=== PATIENT | female | born 1985 | race Caucasian/White ===

== ENCOUNTER 2017-02-25 20:25 | Inpatient (IN) | payer MEDICARE, OTHER ==
[~2017-02-25] VITALS: Ht 165.1 cm; Wt 44.7 kg
[2017-02-25] MEDS ORDERED: SODIUM CHLORIDE 0.9% 1L BAG IV* STA (22:51)
[2017-02-25] MEDS ORDERED: DICLOFENAC SODIUM 37.5 MG/ML VIAL IV STA (22:51)
[2017-02-25] MEDS ORDERED: ALPR0.25 PO (22:56)
[2017-02-25] MEDS ORDERED: IBUP-1542 PO (22:56)
[2017-02-25] MEDS ORDERED: CEPH-442 PO (22:56)
--- NOTE | 2017-02-26 00:04 | RADRPT ---
PROCEDURE: US right lower extremity venous Doppler CLINICAL INDICATION: Right leg swelling TECHNIQUE: Multiple sonographic images of the right lower extremity deep venous system was obtaine d utilizing grayscale, color-flow, compressive sonography and Doppler imaging with augmentation. COMPARISON: No pertinent prior examinations were submitted for comparison. FINDINGS: There is normal compressibility and flow within the right common femoral, superficial femoral, popli teal, and peroneal veins. IMPRESSION: No sonographic evidence for deep venous thrombosis. RPTAT: HIKT .Jason Varela MD, MD Date Time Electronically viewed and signed by .Jason Varela MD, MD on 02/26/2017 00:04 .T/
--- NOTE | 2017-02-26 00:07 | RADRPT ---
PROCEDURE: US right lower extremity arteries. CLINICAL INDICATION: Pain. TECHNIQUE: Multiple longitudinal and transverse images of the right posterior tibial and dorsalis pedis arteries arteries were obtained with leung scale and color Doppler imaging. COMPARISON: No prior studies are available for comparison. FINDINGS: PTA40.0 cm/sectriphasic DPA32.2 cm/sectriphasic IMPRESSION: 1. Normal blood flow in the right posterior tibial and dorsalis pedis arteries. RPTAT: HTAR .Stuart Harris MD, Date Time Electronically viewed and signed by .Stuart Harris MD, on 02/26/2017 00:06 .R/
--- NOTE | 2017-02-26 00:09 | RADRPT ---
PROCEDURE: Ultrasound soft tissue CLINICAL INDICATION: Right upper thigh swelling TECHNIQUE: An ultrasound of the right upper thigh soft tissues was performed utilizing leung scale and Doppler imaging. COMPARISON: None. FINDINGS: Within the right groin region, there is a 2.0 x 0.7 cm irregular collection and Doppler imaging reve als no significant vascularity in this region. IMPRESSION: 1. Irregular 2.0 x 0.7 cm collection in the right groin region, possibly representing a hematoma or abscess. RPTAT: HTAR .Stuart Harris MD, MD Date Time Electronically viewed and signed by .Stuart Harris MD, MD on 02/26/2017 00:09 .R/
--- NOTE | 2017-02-26 00:09 | RADRPT ---
PROCEDURE: XR Chest. CLINICAL INDICATION: Sepsis. TECHNIQUE: Single frontal chest x-ray. COMPARISON: None. FINDINGS: The cardiomediastinal silhouette is unremarkable. There is no congestive heart failure.. There is r ight upper lobe plate-like atelectasis versus scarring. No focal infiltrate is seen. There is no pl eural effusion. There is no pneumothorax. The osseous structures are unremarkable. IMPRESSION: Minimal right upper lobe plate-like atelectasis or scarring. Otherwise negative. RPTAT: HMVK .Dylan Dietz MD, MD Date Time Electronically viewed and signed by .Dylan iDetz MD, on 02/26/2017 00:09 .K/
[2017-02-26 00:33] LABS: ADD SCAN DIFF NO
[2017-02-26 00:35] LABS: BASOPHIL # 0.1 10^3/ul (0.0-0.1); BASOPHILS % 0.3 % (0.0-2.0); EOSINOPHILS % 0.2 % (0.0-7.0); HEMATOCRIT 51.7 % (37.0-47.0); LYMPHOCYTES # 2.4 10^3/ul (0.8-2.9); LYMPHOCYTES % 14.3 % (15.0-51.0); MEAN CORPUSCULAR HEMOGLOBIN 27.8 pg (29.0-33.0); MEAN CORPUSCULAR HGB CONC 32.9 g/dl (32.0-37.0); MEAN CORPUSCULAR VOLUME 84.5 fl (82.0-101.0); MEAN PLATELET VOLUME 9.4 fl (7.4-10.4); MONOCYTE # 0.8 10^3/ul (0.3-0.9); MONOCYTES % 4.7 % (0.0-11.0); NEUTROPHIL # 13.6 10^3/ul (1.6-7.5); NEUTROPHILS % 80.1 % (39.0-77.0); PLATELET COUNT 357 10^3/UL (140-415); RED BLOOD COUNT 6.12 10^6/ul (4.20-5.40); RED CELL DISTRIBUTION WIDTH 13.3 % (11.5-14.5)
[2017-02-26 00:49] LABS: INR 0.96; PROTIME 12.8 Sec (12.2-14.2)
[2017-02-26 00:50] LABS: PARTIAL THROMBOPLASTIN TIME 25.5 Sec (25.0-35.0)
[2017-02-26] MEDS ORDERED: CLINDAMYCIN 600 MG/D5W (PMX) 50 ML IVPB SCH (01:00)
[2017-02-26 01:35] LABS: ALBUMIN/GLOBULIN RATIO 1.21; BILIRUBIN,INDIRECT 0.4 mg/dl (0-1.1); BILIRUBIN,TOTAL 0.4 mg/dl (0.2-1.3); CALCIUM 9.6 mg/dl (8.4-10.2); CREATININE 0.79 mg/dl (0.44-1.00); POTASSIUM 3.6 mmol/L (3.5-5.1); TOTAL PROTEIN 9.1 g/dl (6.1-8.1)
--- NOTE | 2017-02-26 03:05 | RADRPT ---
PROCEDURE: ULTRASOUND LIMITED ABDOMEN CLINICAL INDICATION: 31-year-old female with abdominal pain and abnormal liver function tests. TECHNIQUE: Multiple sonographic of the right upper quadrant of the abdomen were obtained. The imag es were reviewed on a PACS workstation. COMPARISON: None. FINDINGS: The pancreas is partially visualized and is otherwise without abnormal echogenicity. The liver displays normal echogenicity. The liver measures 13.4 cm in length. No evidence of intrah epatic biliary ductal dilatation is seen. The portal and hepatic veins are unremarkable. The gallbladder demonstrates no wall thickening, sludge, nor stones. No pericholecystic fluid is see n. The common bile duct measures 3.1 mm and is not dilated. The right kidney displays normal echogenicity. The right kidney measures 10.5 cm in maximal length. No caliectasis or hydronephrosis is seen. No free fluid is seen. IMPRESSION: Unremarkable right upper quadrant abdominal ultrasound. .Dung Connor MD, MD Date Time Electronically viewed and signed by .Dung Connor MD, on 02/26/2017 03:05 .Ángel/
[2017-02-26 03:49] LABS: ACETAMINOPHEN < 10.0 ug/ml (10.0-30.0); ETHANOL < 10.0 mg/dl
[2017-02-26] MEDS ORDERED: LIDOCAINE 1%/EPI 30 ML INJ INJ STA (03:49)
[2017-02-26] MEDS ORDERED: KETAMINE 500 MG INJ IV STA (03:49)
[2017-02-26] MEDS ORDERED: LIDOCAINE 2%/EPI MPF (SDV) 20 ML VIAL INJ ONE (04:30)
[2017-02-26] MEDS ORDERED: ONDANSETRON 4 MG INJ IV PRN ×2 (04:30→07:30)
--- NOTE | 2017-02-26 05:50 | ERA ---
ER Documentation Chief Complaint Date/Time DATE: 02/26/17 TIME: 05:28 Chief Complaint Leg pain since this morning took norco and xanax homeless HPI 31-year-old female with a history of heroin abuse presenting with right lower extremity pain. She states she was staying at a friend's house and woke up today and could not walk secondary to right lower extremity pain. She states most of the pain is in her upper thigh and radiates down her leg. She complains of associated right foot numbness and tingling. She also complains of left wrist weakness for the past 3 days. This also was something she noticed when she woke up 3 days ago. She denies any back or neck pain. She recently relapsed with heroin and injected in her left upper extremity 2 days ago. She denies injecting anything into her thigh. She also had sexual intercourse 2 days ago but denies any vaginal discharge or bleeding. Denies shortness of breath, chest pain, fever, chills. She denies any other drug use, alcohol use. She is currently homeless. ROS All systems reviewed and are negative except as per history of present illness. Medications Home Meds Reported Medications Ibuprofen* (Ibuprofen*) 600 Mg Tablet, 600 MG PO Q8 for PAIN LEVEL 1-5, TAB 02/25/17 Alprazolam* (Xanax*) Unknown Strength Tablet, 0 PO Q8H Y for ANXIETY, TAB 02/25/17 Cephalexin* (Keflex*) Unknown Strength Capsule, 0 PO Q6, #28 CAP 02/25/17 Allergies Allergies: Coded Allergies: No Known Allergy (Unverified , 02/25/17) PMhx/Soc History of Surgery: Yes (Breast augmentation,) Anesthesia Reaction: No Hx Neurological Disorder: No Hx Respiratory Disorders: No Hx Cardiac Disorders: No Hx Psychiatric Problems: No Hx Miscellaneous Medical Probl: No Hx Alcohol Use: Yes Hx Substance Use: Yes (Heroin IV) Hx Tobacco Use: Yes Smoking Status: Current every day smoker FmHx Family History: No diabetes Physical Exam Vitals Vital Signs Date Time Temp Pulse Resp B/P Pulse Ox O2 Delivery O2 Flow Rate FiO2 02/26/17 05:00 105 20 123/92 100 Nasal Cannula 2.0 02/26/17 04:45 130 20 122/86 100 Nasal Cannula 2.0 02/26/17 04:35 110 20 120/76 100 Room Air 02/26/17 03:40 100 20 120/86 100 Room Air 02/25/17 21:06 99.1 119 20 104/80 100 Physical Exam Const: Somnolent but arousable, nontoxic, in distress secondary to pain. Very thin and malnourished Head: Atraumatic Eyes: Normal Conjunctiva ENT: Normal External Ears, Nose and Mouth. Neck: Full range of motion.. No meningismus. Resp: Clear to auscultation bilaterally Cardio: Tachycardic with regular rhythm, no murmurs Abd: Soft, non tender, non distended. Normal bowel sounds. Bilateral inguinal lymphadenopathy Skin: No petechiae or rashes Back: No midline or flank tenderness Ext: No cyanosis. 1+ DP and PT pulses. Right lower extremity with swelling and induration to the right medial aspect of the thigh with mild overlying erythema and slight swelling of the entire right lower extremity. There is no palpable fluctuance. Left wrist drop present. 2+ radial pulses bilaterally Neur: Somnolent but arousable, no facial asymmetry. Moving all extremities spontaneously. Refuses to comply with gait testing secondary to pain. There is decreased sensation in the right foot, but sensations intact above the ankle. She is able to flex and extend the right lower extremity at the hip, knee, and the ankle. She is able to wiggle her toes. Left lower extremity has full sensations and motor strength. Psych: Labile, depressed mood Result Diagram: 02/25/17 2355 02/25/17 2355 Results 24 hrs Laboratory Tests Test 02/25/17 23:55 02/26/17 02:30 02/26/17 02:50 White Blood Count 17.010^3/ul Red Blood Count 6.1210^6/ul Hemoglobin 17.0g/dl Hematocrit 51.7% Mean Corpuscular Volume 84.5fl Mean Corpuscular Hemoglobin 27.8pg Mean Corpuscular Hemoglobin Concent 32.9g/dl Red Cell Distribution Width 13.3% Platelet Count 74840^3/UL Mean Platelet Volume 9.4fl Neutrophils % 80.1% Lymphocytes % 14.3% Monocytes % 4.7% Eosinophils % 0.2% Basophils % 0.3% Nucleated Red Blood Cells % 0.0/100WBC Neutrophils # 13.610^3/ul Lymphocytes # 2.410^3/ul Monocytes # 0.810^3/ul Eosinophils # 0.010^3/ul Basophils # 0.110^3/ul Nucleated Red Blood Cells # 0.010^3/ul Prothrombin Time 12.8Sec Prothrombin Time Ratio 1.0 INR International Normalized Ratio 0.96 Activated Partial Thromboplast Time 25.5Sec Sodium Level 136mmol/L Potassium Level 3.6mmol/L Chloride Level 95mmol/L Carbon Dioxide Level 29mmol/L Anion Gap 16 Blood Urea Nitrogen 14mg/dl Creatinine 0.79mg/dl Glucose Level 100mg/dl Lactic Acid Level 1.9mmol/L Calcium Level 9.6mg/dl Total Bilirubin 0.4mg/dl Direct Bilirubin 0.00mg/dl Indirect Bilirubin 0.4mg/dl Aspartate Amino Transf (AST/SGOT) 1414IU/L Alanine Aminotransferase (ALT/SGPT) 384IU/L Alkaline Phosphatase 93IU/L Total Protein 9.1g/dl Albumin 5.0g/dl Globulin 4.10g/dl Albumin/Globulin Ratio 1.21 Serum HCG, Qualitative NEGATIVE Acetaminophen Level < 10.0ug/ml Ethyl Alcohol Level < 10.0mg/dl Current Medications Medications (Trade) Dose Ordered Sig/Michelle Route PRN Reason Start Time Stop Time Status Last Admin Dose Admin Sodium Chloride (NS) 1,400 ml BOLUS OVER 2 HOURS STAT IV* 02/25/17 22:51 02/25/17 22:55 DC 02/26/17 00:13 Diclofenac Sodium 37.5 mg 37.5 mg ONCE STAT IV 02/25/17 22:51 02/25/17 22:55 DC 02/26/17 00:13 Clindamycin HCl/ Dextrose (Cleocin 600 Mg/ D5W (Pmx)) 50 ml @ 50 mls/hr ONCE IVPB 02/26/17 01:00 02/26/17 01:59 DC 02/26/17 03:00 Ketamine HCl (Ketalar) 90 mg ONCE STAT IV 02/26/17 03:49 02/26/17 03:51 DC Lidocaine/ Epinephrine (Xylocaine 1%/ Epi) 30 ml ONCE STAT INJ 02/26/17 03:49 02/26/17 04:19 DC Ondansetron HCl (Zofran Inj) 4 mg BRIDGE ORDER PRN IV NAUSEA AND/OR VOMITING 02/26/17 04:30 02/27/17 04:29 Lidocaine/ Epinephrine (Xylocaine 2%/ Epi Mpf(Sdv)) 20 ml ONCE ONCE INJ 02/26/17 04:30 02/26/17 04:31 DC Procedures/MDM Patient is presenting with right lower extremity pain and paresthesias. Vitals were notable for tachycardia and labs showed leukocytosis and evidence of dehydration. Lactate was within normal limits. 30 cc/kg of IV fluids were started. Clindamycin IV was given for presumed cellulitis and abscess. I have a lower suspicion for epidural abscess, pneumonia, acute pelvic infection, or acute surgical abdomen. US RLE was done to eval for deep abscess, DVT and to eval arterial flow. There was normal arterial flow and no DVT. There was at 2 x 0.7 cm fluid collection noted in the right medial thigh concerning for hematoma versus abscess. I spoke with the patient regarding this and she did not want to be awake during I&D. I advised her of the risks of sedation and she consented after voicing that she understands all the risks associated with procedural sedation. Consent was signed. Needle drainage was done and fluid was sent for culture. Patient's infectious symptoms have not stabilized and the patient is at risk of rapid decompensation. The patient will be admitted for careful hydration, antibiotic therapy, and infectious source control. 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 I have a lower suspicion that she has an intracranial abnormality or cord compression. I will defer any further workup to the inpatient team. Procedural Sedation: Pre-assessment performed. See preceding complete history and physical for details. Time out performed. See sedation documentation for details. Medication(s): Ketamine Complications: No hypoxic or apneic events Recovered without incident. Greater than 15 minutes of face to face time included in sedation and recovery. Abscess aspiration by me: Location: Right medial thigh/groin Anesthesia: Local 2% Lidocaine with epinephrine Technique: Needle aspiration with 18-gauge needle. 8 mL of turbid bloody fluid removed with ultrasound guidance Packing: None Complications: Neurovascularly intact post procedure 48 hour wound check. Scar minimization instructions given. ED Ultrasound: Abscess localized by me using concurrent ultrasound guidance and assessment of the anatomy. Severe Sepsis Assessment: Infectious Source: Right thigh cellulitis and abscess Severe Sepsis Managment: Blood Cultures X 2 before broad spectrum antibiotics initiated within 3 hours of recognition. 30 ml/kg NS bolus Completed Initial Lactate: 1.9 Repeat Lactate not indicated as initial < 2.0 Critical Care: Time: 40 minutes Treatments/Evaluations: Emergent fluid management, while maintaining close respiratory support. Immediate broad spectrum antibiotic therapy. Simultaneous assessment for possible sources in order to direct therapy. Consideration for invasive and chemical support to prevent respiratory or cardiac collapse. Septic Shock Assessment (1 hour post 30 ml/kg fluid bolus): Hypotension (SBP < 90 or 40 mmHg drop, MAP < 65): No Lactic acid > 4.0 No Accepting Care Team: Current data and ongoing care discussed. Time: Time of admission Primary Provider: Avelino Consulting: none Outstanding Data: wound and blood cultures Departure Diagnosis: Primary Impression: Cellulitis of right lower extremity Additional Impressions: Abscess of right thigh Sepsis Qualified Code: A41.9 - Sepsis, due to unspecified organism Left wrist drop Condition: Serious EKMARA AGUILAR MD Feb 26, 2017 05:49
[2017-02-26 06:00] VITALS: PULSE 89; TEMP 98.1
[2017-02-26 06:50] VITALS: BP 105/68; RESP 18
[2017-02-26] MEDS ORDERED: ACETAMINOPHEN 325 MG TAB PO PRN (07:30)
[2017-02-26] MEDS ORDERED: NACL 0.9% 3 ML SYG IV SCH (07:30)
--- NOTE | 2017-02-26 07:47 | HP ---
Date/Time of Note Date/Time of Note DATE: 02/26/17 TIME: 07:43 Assessment/Plan VTE Prophylaxis VTE Prophylaxis Intervention: other (Hold anticoagulation until seen by surgery.) Assessment/Plan Chief Complaint/Hosp Course This is a 31 female being admitted to [facility] for: #1 sepsis: Patient had a white blood cell count of 17 and tachycardia and was the source finger possibly a right abscess. Drainage was attempted in the ED however not much was drained out. Given clindamycin in the ED. Will start vancomycin pharmacy to dose. Will obtain a CAT scan of the right lower extremity for further evaluation. Ultrasound of the right lower extremity did show a 2 x 1 approximately centimeter abscess versus hematoma. Will consult general surgery. #2 right thigh abscess: Ultrasound revealed a 2 x 0.7 cm abscess. It was attempted to be drained in the ED. Will obtain CT scan of the right lower extremity to further evaluate the underlying abscess vs. necoritizing fascitis. Will consult general surgery. #3 IV drug abuse: Patient states that she used heroin recently. Will continue to monitor the patient. Will consult palliative care for further pain management and also consult infectious disease for further antibiotic management. Will await blood cultures and then consider possible echo. #4 left wrist drop: This possibly could have been related to IV drug injection into his left upper extremity. Will continue to monitor this and consider imaging studies as indicated. #5 transaminitis: Patient denies any upper right quadrant pain. Ultrasound of the abdomen does not show any acute abnormality of the liver. However this elevated transaminitis is concerning. Will order hepatitis panel and hepatitis A, B, and C. #6 DVT and GI prophylaxis: Currently will avoid any chemical anticoagulation secondary to possible surgical procedure with surgery, Famotidine Further treatment strategy will be implemented as per the clinical course. Problems: HPI/ROS Admit Date/Time Admit Date/Time Feb 26, 2017 at 04:09 Hx of Present Illness Chief complaint: Right lower extremity pain 31-year-old female with a history of heroin abuse presenting with right lower extremity pain. She states she was staying at a friend's house and woke up today and could not walk secondary to right lower extremity pain. She states most of the pain is in her upper thigh and radiates down her leg. She complains of associated right foot numbness and tingling. She also complains of left wrist weakness for the past 3 days. This also was something she noticed when she woke up 3 days ago. She denies any back or neck pain. She recently relapsed with heroin and injected in her left upper extremity 2 days ago. She denies injecting anything into her thigh. She also had sexual intercourse 2 days ago but denies any vaginal discharge or bleeding. Denies shortness of breath, chest pain, fever, chills. She denies any other drug use, alcohol use. She is currently homeless Allergies: NKDA Medications: See MICHAEL BARROSO Const: As per HPI Eyes : No pain discharge or redness or change in visual acuity ENT: No pain, sore throat, congestion, congestion, dysphagia or discharge Respiratory: No shortness of breath, cough, sputum, wheezing, or pleuritic pain Cardiovascular: No chest pain, palpitation, PND, or edema GI : no change in appetite, abdominal pain, nausea, vomiting, diarrhea, constipation, or change in the color his stool Genitourinary: No dysuria, hematuria, flank pain , discharge or CVA tenderness Musculoskeletal: As per HPI Skin: As per HPI Neuro: No headache, dizziness, syncope, seizure, focal weakness Endocrine: No polyuria, polydipsia, temperature intolerance Psych: No hallucination, depression, anxiety or suicidal ideation PMH/Family/Social Past Medical History Medical History: no pertinent history Past Surgical History Past Surgical Hx: no surgical history Family History Significant Family History: no pertinent family hx Social History Smoking Status: Current every day smoker Drug Use: other (IV heroin drug use) Exam/Review of Systems Vital Signs Vitals Vital Signs Date Time Temp Pulse Resp B/P Pulse Ox O2 Delivery O2 Flow Rate FiO2 02/26/17 06:50 98.7 97 18 105/68 99 02/26/17 06:00 Nasal Cannula 2.0 Exam Exam General: Patient is awake and alert however she does appear to be waxing and waning. She is answering questions appropriately stating she has right upper thigh pain. HEENT: Atraumatic, normocephalic. The pupils are equal, round and reactive. Extraocular motor are intact Neck: Supple with full range of motion. Chest: Nontender Lungs: Clear to auscultation bilaterally no crackles rales or wheezing Heart: Normal S1-S2, Regular rhythm and rate. No overt murmurs appreciated. Abdomen: Soft , nontender, nondistended , bowel sounds are present. No guarding no rebound tenderness , No masses or organomegaly. No costovertebral temporal angle mass Extremities: Left wrist drop, right medial thigh tenderness to palpation, warmth , redness. Neurologic: Left wrist drop, grossly normal mentation, alert and oriented 3. Musculoskeletal: Right upper vertebral muscle tenderness to palpation. Additional Comments ROCEDURE: ULTRASOUND LIMITED ABDOMEN CLINICAL INDICATION: 31-year-old female with abdominal pain and abnormal liver function tests. TECHNIQUE: Multiple sonographic of the right upper quadrant of the abdomen were obtained. The images were reviewed on a PACS workstation. COMPARISON: None. FINDINGS: The pancreas is partially visualized and is otherwise without abnormal echogenicity. The liver displays normal echogenicity. The liver measures 13.4 cm in length. No evidence of intrahepatic biliary ductal dilatation is seen. The portal and hepatic veins are unremarkable. The gallbladder demonstrates no wall thickening, sludge, nor stones. No pericholecystic fluid is seen. The common bile duct measures 3.1 mm and is not dilated. The right kidney displays normal echogenicity. The right kidney measures 10.5 cm in maximal length. No caliectasis or hydronephrosis is seen. No free fluid is seen. IMPRESSION: Unremarkable right upper quadrant abdominal ultrasound. .Dung Connor MD, MD Date Time Electronically viewed and signed by .Dung Connor MD, on 02/26/2017 03:05 .M/ CC: MARA CHAPA MD PROCEDURE: XR Chest. CLINICAL INDICATION: Sepsis. TECHNIQUE: Single frontal chest x-ray. COMPARISON: None. FINDINGS: The cardiomediastinal silhouette is unremarkable. There is no congestive heart failure.. There is right upper lobe plate-like atelectasis versus scarring. No focal infiltrate is seen. There is no pleural effusion. There is no pneumothorax. The osseous structures are unremarkable. IMPRESSION: Minimal right upper lobe plate-like atelectasis or scarring. Otherwise negative. ROCEDURE: US right lower extremity venous Doppler CLINICAL INDICATION: Right leg swelling TECHNIQUE: Multiple sonographic images of the right lower extremity deep venous system was obtained utilizing grayscale, color-flow, compressive sonography and Doppler imaging with augmentation. COMPARISON: No pertinent prior examinations were submitted for comparison. FINDINGS: There is normal compressibility and flow within the right common femoral, superficial femoral, popliteal, and peroneal veins. IMPRESSION: No sonographic evidence for deep venous thrombosis. RPTAT: HIKT .Jason Varela MD, MD Date Time Electronically viewed and signed by .Jason Varela MD, MD on 02/26/2017 00:04 PROCEDURE: Ultrasound soft tissue CLINICAL INDICATION: Right upper thigh swelling TECHNIQUE: An ultrasound of the right upper thigh soft tissues was performed utilizing leung scale and Doppler imaging. COMPARISON: None. FINDINGS: Within the right groin region, there is a 2.0 x 0.7 cm irregular collection and Doppler imaging reveals no significant vascularity in this region. IMPRESSION: 1. Irregular 2.0 x 0.7 cm collection in the right groin region, possibly representing a hematoma or abscess. Labs Result Diagram: 02/25/17 2355 02/25/17 2355 Medications Medications Current Medications Sodium Chloride (NS) 1,000 ml @ 70 mls/hr [id number] IV ; Start 02/26/17 at 07:28; Status UNV Ondansetron HCl (Zofran Inj) 4 mg Q6H PRN IV NAUSEA AND/OR VOMITING; Start 02/26 at 07:30; Status UNV Acetaminophen (Tylenol Tab) 650 mg Q6H PRN PO PAIN LEVEL 1-3 OR FEVER; Start at 07:30; Status UNV Famotidine (Pepcid Iv) 20 mg Q12 IV ; Start 02/26/17 at 09:00; Status UNV Heparin Sodium (Porcine) (Heparin (5000 Units/0.5 ml)) 5,000 unit Q8 SC ; Start 02/26/17 at 14:00; Status UNV MARSHA WETZEL Feb 26, 2017 07:47 MARSHA WETZEL Feb 26, 2017 07:47
[2017-02-26 08:19] VITALS: BP 105/65; RESP 18; Ht 165.1 cm; Wt 44.7 kg
[2017-02-26] MEDS ORDERED: VANCOMYCIN IV PER PHARMACY XX SCH (08:30)
[2017-02-26 08:31] LABS: HAAIG REFLEX REFLEX FILED
[2017-02-26] MEDS ORDERED: VANCOMYCIN 1 GM in NS 250 ML IVPB ONE (09:00)
[2017-02-26] MEDS ORDERED: morphine 10 MG INJ IM PRN (09:30)
[2017-02-26] MEDS: FAMOTIDINE 20 MG INJ IV SCH ×2 (09:31→20:37)
[2017-02-26] MEDS: SOD CHLORIDE 0.9% 1,000 ML IV SCH ×2 (09:32→21:46)
[2017-02-26] MEDS ORDERED: morphine 2 MG INJ IV PRN (10:00)
[2017-02-26 10:35] LABS: HEPATITIS B CORE ANTIBODY NEGATIVE (NEGATIVE)
[2017-02-26] MEDS ORDERED: IOHEXOL 300MG/ML 150 ML BTL ONE ×2 (10:53→16:45)
[2017-02-26] MEDS ORDERED: SOD CHLORIDE 0.9% 0 ML ONE ×2 (10:53→15:41)
--- NOTE | 2017-02-26 11:42 | RADRPT ---
PROCEDURE: CT of the right femur with contrast CLINICAL INDICATION: Hematoma versus abscess TECHNIQUE: CT scan of the right femur was performed after 80 cc of Omnipaque-300 IV contrast was a dministered. Coronal and sagittal reformatted images were obtained from the axial source images. Im ages were reviewed on a high-resolution PACS workstation. The calculated radiation dose measures 64 7.86 mGy centimeters. The CTDI measures 18.41 mGy. One or more of the following dose reduction techniques were used: - Automated exposure control. - Adjustment of the mA and/or kV according to patient size . - Use of iterative reconstruction technique. COMPARISON: Correlation with ultrasound from 02/25/2017. FINDINGS: Soft tissues: There is abnormal infiltration expansion seen throughout the hip adductor musculature continuing dis tally into the long abductor muscles to the posterior thighs seen on the axial series image 84. The re is blurring and edematous myofascial planes in the abductor musculature as well as partially into the distal hamstring muscle seen on the axial series image 76. These findings are suspicious for i nfectious myositis or possibly infectious/early necrotizing fasciitis. No soft tissue gas is noted. No evidence for a large drainable fluid collection. There is fluid noted within the greater troch anteric bursa as well. Osseous structures: There is no cortical destruction to suggest osteomyelitis. The hip joint is maintained. There is a small hip joint effusion. IMPRESSION: 1. Abnormal expansion, intramuscular edema and blurring of the myofascial planes noted along the hip adductors of the pelvis, the adductor rama muscle and inner thigh fat musculature more distally a nd partially at the distal hamstring musculature with a marked amount of edema at the myofascial mary karen. These findings are somewhat nonspecific, but could represent either infectious myositis or inf ectious/early necrotizing fasciitis in the right clinical setting. An inflammatory myositis is a le ss likely possibility. 2. Marked amount of subcutaneous edema is also noted. Small intramuscular collection may be presen t although a larger drainable fluid collection is not well identified. 3. Small nonspecific right hip joint effusion. No evidence for osteomyelitis. 4. Large, likely reactive external iliac lymphadenopathy. 5. No soft tissue gas is seen. Call report: A call report was made to VALORIE Nolasco at 11:30 a.m. on 02/26/2017. RPTAT: EE .Mikie Khan MD, MD Date Time Electronically viewed and signed by .Mikie Khan MD, MD on 02/26/2017 11:42 .d/
[2017-02-26] MEDS: NICOTINE (14 MG/24 HR) PATCH TRANSDERM SCH (12:30)
--- NOTE | 2017-02-26 13:54 | CONS ---
DATE OF ADMISSION: 02/26/2017 DATE OF CONSULTATION: 02/26/2017 TYPE OF CONSULTATION: Infectious disease. REASON FOR CONSULTATION: Antibiotic management. HISTORY OF PRESENT ILLNESS: Samara Barnett is a 31-year-old female who has a history of heroin ab use and is being seen now for antibiotic management. Her past problems include: 1. Heroin abuse. 2. Right lower extremity pain. She states that she was at a friend's house, woke up and could not walk secondary to right lower ext remity pain, which is in the upper thigh and radiates down her leg. She complains of associated rig ht foot numbness and tingling. She also complains of left wrist weakness over the last 3 days. She woke up to this 3 days ago. She denies any back or neck pain. She recently relapsed with heroin a nd injected her left upper extremity 2 days ago, but denies injecting anything in to her thigh. She has had sexual intercourse 2 days ago, but denies any vaginal bleeding or discharge. On admission her white count was 17,000, H and H of 17 and 51.7, platelet count of 357,000. BUN and creatinine a re 14/0.79. She is surface antibody positive for hepatitis B and she is reactive to hepatitis C., s o she is positive for hep C. There is a culture on an abscess that is pending. Soft tissue ultraso und: An irregular 2 x 0.7 collection in the right groin, either hematoma or abscess. Her Doppler is negative. Chest x-ray: Minimal right upper lobe platelike atelectasis or scarring. Lower extremit y CT shows abnormal expansion, intramuscular edema, blurring of the myofascial planes noted along wi th hip abductors of the pelvis, the adductor rama muscle, and inner thigh muscle. More distally a nd partially at the distal hamstring musculature with a marked amount of edema of the myofascial mary karen. They are nonspecific, could represent either infectious myositis or infectious/early necrotizi ng fasciitis in the right clinical setting. Inflammatory myositis is the less likely possibility. A marked amount of subcutaneous edema is noted. No evidence of osteomyelitis. Abdominal ultrasound is negative. PAST MEDICAL HISTORY: Operations as outlined. FAMILY HISTORY: Noncontributory. SOCIAL HISTORY: She has never been a smoker. She uses IV heroin. PHYSICAL EXAMINATION: VITAL SIGNS: Stable. She is afebrile. SKIN: Without generalized rash. HEENT: Within normal limits. NECK: Supple. LYMPH NODES: None palpable. CHEST: Decreased breath sounds at the bases. HEART: Without murmur or gallop. ABDOMEN: Soft, nontender, without organosplenomegaly or masses. EXTREMITIES: She has a left wrist drop, right medial thigh tenderness to palpation, with warmth and redness. RECTAL AND GENITAL EXAM: Deferred. NEUROLOGICAL EVALUATION: Again, left wrist drop. IMPRESSION AND PLAN: The patient has an abscess in the right thigh, a culture of which was taken. We should get a surgeon to evaluate the thigh itself to make sure we not are dealing with a necrotiz ing fasciitis. She should have blood cultures pending, which she does. She has urine cultures pendi ng and wound cultures. I will dictate my findings to the hospitalist. Dictated By: CHELA AVERY MD, JD/VENKATESH Conf#: [id number] DID#: [id number]
[2017-02-26] MEDS: HEPARIN 5,000 UNIT/0.5 ML VIAL SC SCH ×2 (14:00→21:25)
[2017-02-26 14:42] LABS: ADD UMIC YES; URINE BILIRUBIN (Dip) NEGATIVE (NEGATIVE); URINE BLOOD (Dip) 3+ (NEGATIVE); URINE COLOR LT. YELLOW (YELLOW); URINE GLUCOSE (Dip) NEGATIVE (NEGATIVE); URINE KETONES (Dip) NEGATIVE (NEGATIVE); URINE LEUKOCYTE ESTERASE (Dip) NEGATIVE (NEGATIVE); URINE NITRITE (Dip) NEGATIVE (NEGATIVE); URINE TOTAL PROTEIN (Dip) NEGATIVE (NEGATIVE); URINE UROBILINOGEN (Dip) 0.2 E.U./dL (0.1-1.0)
[2017-02-26 15:01] LABS: BARBITURATES Negative (NEGATIVE); BENZODIAZEPINES Positive (NEGATIVE); CANNABINOIDS Negative (NEGATIVE); COCAINE Positive (NEGATIVE); OPIATES Positive (NEGATIVE)
[2017-02-26 15:28] LABS: SQUAMOUS EPITHELIAL CELL,UR FEW
[2017-02-26 15:29] LABS: URINE RBCS 0-2 /HPF (0)
[2017-02-26] MEDS ORDERED: IOHEXOL 300MG/ML 30 ML BTL ONE (15:41)
[2017-02-26] MEDS: PIPER-TAZO 3.375 GM IV (PMX) 100 ML IVPB SCH (17:51)
[2017-02-26] MEDS: ALPRAZOLAM 0.25 MG TAB PO PRN (17:51)
[2017-02-26] MEDS: morphine 2 MG INJ IV PRN ×2 (17:51→21:52)
[2017-02-26] MEDS: VANCOMYCIN 500MG/NS (PMX) 100 ML IVPB SCH (20:37)
--- NOTE | 2017-02-26 20:57 | CONS ---
DATE OF ADMISSION: 02/26/2017 DATE OF CONSULTATION: 02/26/2017 TYPE OF CONSULTATION: Surgical. REFERRING PHYSICIAN: Russel Simmons MD CHIEF COMPLAINT: 1. Right groin/medial thigh pain and swelling. 2. Abscess, right groin. 3. Heroin abuse. 4. Leukocytosis. 5. Sepsis. 6. Transaminitis. HISTORY OF PRESENT ILLNESS: Samara Barnett is a 31-year-old female with drug abuse history, who p resents with a right thigh and groin pain and difficulty in ambulation. The pain radiates down to t he leg. She also has right foot numbness and tingling. She denies any injection at this site. How ever, she has injected in her left upper extremity. She is sexually active but denies any bleeding or vaginal discharge. No chest pain, no shortness of breath. No cough or seizures. No blood per m outh or rectum. No dysuria. No fevers or chills. No headache. In the emergency room, she is found to be tachycardic, but otherwise stable vitals. CBC shows leuko cytosis of 617 and she has transaminitis. Ultrasound of the area identifies 2 x 7 cm collection in the right groin which was drained by ER and patient was admitted for further care and treatment. CT scan of the right lower extremity identifies abnormal expansion, intramuscular edema and blurring o f the myofascial planes along the hip abductors of the pelvis. The adductor rama muscle and inner thigh musculature more distally and partially at the distal hamstring musculature with a marked amou nt of edema in the myofascial planes. These findings are somewhat nonspecific but could represent e ither infectious myositis or infectious early necrotizing fasciitis in the right clinical setting. Inflammatory myositis is a less likely possibility. There is also marked amount of subcutaneous pako ma. Small intramuscular collection may be present, although a large drainable fluid collection is n ot identified. Small nonspecific right hip joint effusion. No evidence for osteomyelitis. Large l ikely reactive external iliac lymphadenopathy. There is no soft tissue gas. PAST MEDICAL HISTORY: 1. IV drug abuse. 2. Right thigh groin abscess and infection. 3. Leukocytosis. 4. Tachycardia. 5. Sepsis. 6. Transaminitis. PAST SURGICAL HISTORY: Denies. MEDICATIONS: As per NOV. ALLERGIES: DENIES. SOCIAL HISTORY: Daily smoker. IV drug abuse. Social alcohol. FAMILY HISTORY: Noncontributory. REVIEW OF SYSTEMS: A 12-point review of systems negative unless addressed in the HPI. PHYSICAL EXAMINATION: VITAL SIGNS: Temperature is 98.7, pulse 80s to 130s, currently 97, blood pressure 105/68. GENERAL: Drowsy. No acute distress. HEENT: Pupils equal, reactive. No scleral icterus. Mucous membranes are moist. NECK: No crepitus. Trachea midline. Supple. PULMONARY: Normal respiratory effort. No wheezing. HEART: S1, S2 present. ABDOMEN: Soft, nontender. EXTREMITIES: Some induration and tenderness right medial thigh. No fluctuance. Otherwise, no minda a. VASCULAR: Capillary refill is 2 seconds. NEUROLOGIC: Arousable, moves all 4 extremities grossly. LYMPHATICS: Inguinal lymphadenopathy on the right side. LABORATORY AND RADIOGRAPHIC: As per chart and HPI. ASSESSMENT AND PLAN: Samara Barnett is a 31-year-old female. 1. Right thigh groin deep space infection of unknown etiology. Continue antibiotics. Continue beverly icious fluid management. Continue close monitoring. The patient needs orthopedic consultation and evaluation, since this is a deep tissue involving possible and fascial planes. 2. Leukocytosis with tachycardia secondary to above with possible sepsis. Continue antibiotics and supportive therapy as above. 3. Transaminitis of unknown etiology. Consult GI. Rule out hepatitis. 4. IV drug abuse history with heroin. The patient is highly encouraged to seek help and stop abuse . 5. Left wrist motor and sensory function, possibly due to recent drug infection. Also, recommend o rthopedic consultations and evaluation. Thank you very much for consulting me in this patient's care. Dictated By: CAROLYN GARG/VENKATESH Conf#: [id number] DID#: [id number]
[2017-02-26 21:36] VITALS: BP 107/68; RESP 18
[2017-02-27] MEDS: ALPRAZOLAM 0.25 MG TAB PO PRN ×4 (00:49→19:36)
[2017-02-27] MEDS: PIPER-TAZO 3.375 GM IV (PMX) 100 ML IVPB SCH ×3 (01:57→17:29)
[2017-02-27] MEDS: morphine 2 MG INJ IV PRN ×3 (02:31→11:27)
[2017-02-27] MEDS: HEPARIN 5,000 UNIT/0.5 ML VIAL SC SCH ×3 (06:04→22:15)
[2017-02-27 08:00] VITALS: BP 113/74; RESP 19
[2017-02-27] MEDS: FAMOTIDINE 20 MG INJ IV SCH ×2 (08:52→22:14)
[2017-02-27] MEDS: NICOTINE (14 MG/24 HR) PATCH TRANSDERM SCH (08:52)
[2017-02-27] MEDS: VANCOMYCIN 500MG/NS (PMX) 100 ML IVPB SCH (08:53)
[2017-02-27 10:03] LABS: ADD SCAN DIFF NO
[2017-02-27 10:11] LABS: BASOPHILS % 0.3 % (0.0-2.0); EOSINOPHILS % 0.3 % (0.0-7.0); HEMATOCRIT 34.9 % (37.0-47.0); HEMOGLOBIN 11.6 g/dl (12.0-16.0); LYMPHOCYTES # 3.4 10^3/ul (0.8-2.9); LYMPHOCYTES % 31.3 % (15.0-51.0); MEAN CORPUSCULAR HGB CONC 33.2 g/dl (32.0-37.0); MEAN CORPUSCULAR VOLUME 84.3 fl (82.0-101.0); MEAN PLATELET VOLUME 9.6 fl (7.4-10.4); MONOCYTE # 0.5 10^3/ul (0.3-0.9); MONOCYTES % 4.3 % (0.0-11.0); NEUTROPHIL # 6.9 10^3/ul (1.6-7.5); NEUTROPHILS % 63.6 % (39.0-77.0); PLATELET COUNT 252 10^3/UL (140-415); RED BLOOD COUNT 4.14 10^6/ul (4.20-5.40); RED CELL DISTRIBUTION WIDTH 13.4 % (11.5-14.5); WHITE BLOOD COUNT 10.8 10^3/ul (4.8-10.8)
[2017-02-27 10:28] LABS: ALBUMIN 3.5 g/dl (3.3-4.9); ALBUMIN/GLOBULIN RATIO 1.4; BILIRUBIN,INDIRECT 0.2 mg/dl (0-1.1); BILIRUBIN,TOTAL 0.2 mg/dl (0.2-1.3); CALCIUM 8.1 mg/dl (8.4-10.2); CREATININE 0.66 mg/dl (0.44-1.00); MAGNESIUM 1.8 mg/dl (1.7-2.5); POTASSIUM 3.8 mmol/L (3.5-5.1)
[2017-02-27] MEDS: SOD CHLORIDE 0.9% 1,000 ML IV SCH (11:27)
[2017-02-27] MEDS ORDERED: morphine 2 MG INJ IV ONE (14:00)
--- NOTE | 2017-02-27 15:28 | PN ---
DATE: 02/27/2017 SUBJECTIVE: No events overnight. The patient is alert, looks comfortable, complaining of right inn er thigh pain, no fevers. WBC today 10.8, no shift, no bands. BUN 5, creatinine 0.66. MICROBIOLOGY: Serology for hepatitis C came back positive, serology for HIV negative. MICROBIOLOGY: Blood cultures, urine culture negative. Wound culture negative. ANTIMICROBIALS: The patient is on: 1. Vancomycin. 2. Zosyn. PHYSICAL EXAMINATION: GENERAL: This is a well-developed anorexic-looking middle-aged woman who is alert, in no distress. HEENT: Head atraumatic, normocephalic. Sclerae anicteric. Buccal mucosa pink. NECK: Supple. CHEST: Rise symmetrical. Breath sounds clear. HEART: S1, S2. ABDOMEN: Soft. Bowel tones present. EXTREMITIES: With right inner thigh erythema. ASSESSMENT: 1. Systemic inflammatory response syndrome. 2. Right thigh cellulitis, possibly folliculitis. 3. History of heroin abuse. 4. Hepatitis C virus. PLAN: The patient remains clinically stable, surgical recommendations noted. She is on appropriate antimicrobials. Awaiting for ortho evaluation. Continue pain management. Dictated By: STEPHANIE FUENTES SNOUT PULLER for CHELA BEAULIEU/VENKATESH Conf#: [id number] DID#: [id number]
--- NOTE | 2017-02-27 15:45 | PN ---
DATE: 02/27/2017 TIME OF EVALUATION: 1400. SUBJECTIVE: The patient is asking for pain medication around the clock. Remains afebrile. OBJECTIVE DATA: VITAL SIGNS: Temperature 97.9, pulse rate 110, respiratory rate 19, blood pressure 113/74, oxygen saturation 100% on room air. GENERAL: This is a 31-year-old female patient, lying in bed, in no apparent distress. HEENT: Head normocephalic and atraumatic. Eyes: Anicteric sclerae. Conjunctivae clear. ENT: Nasal septum is midline. Oral mucosa is moist. NECK: Supple. No JVD noticed. RESPIRATORY: Bilaterally clear to auscultation. No adventitious breath sounds heard. No use of accessory muscles of respiration. CARDIAC: Regular rate and rhythm. S1, S2 heard. ABDOMEN: Soft, nontender and nondistended. Bowel sounds positive in all 4 quadrants. GENITOURINARY: Deferred. EXTREMITIES: Right thigh erythema with tenderness to touch close to the groin, with extension of the erythema to the left gluteal area. Left wrist joint range of motion limited. Left hand grasp weaker than right hand. NEUROLOGIC: The patient is awake, alert and oriented. Cranial nerves are grossly intact. LABORATORY AND DIAGNOSTIC DATA: WBC 10.8, hemoglobin 11.6, hematocrit 34.9, platelet count 252. Sodium 141, potassium 3.8, chloride 102, carbon dioxide 31 , anion gap 12, BUN 5, creatinine 0.66, glucose 158, calcium 8.1, magnesium 1.8 , total bilirubin 0.2, indirect bilirubin 0.2, AST 925, ALT 350, alkaline phosphatase 56. Hepatitis C antibody reactive. HIV 1 and 2 antibodies negative. IMPRESSION AND PLAN: 1. Left thigh/groin area deep space infection of unknown etiology. Continue antibiotics. No drainable fluid as per CT scan. The patient is being followed by infectious disease and general surgery. 2. Transaminitis, most probably secondary to hepatitis C. Hepatitis C antibody positive. Hepatitis C RNA PCR pending. 3. Sepsis secondary to underlying right groin/thigh abscess. Continue antibiotics. No evidence of any septic shock. 4. Polysubstance abuse. The patient is being followed by the pain management team. 5. Left wrist decreased range of motion. The patient will be monitored. 6. Fluids, electrolytes and nutrition. Regular diet. 7. Deep vein thrombosis prophylaxis. Bilateral sequential compression devices. 8. Gastrointestinal prophylaxis. Histamine 2 receptor blockers. PLAN: Continue antibiotics as per infectious disease. As per general surgery recommendation, called the on-call orthopedic surgeon, Dr. Chavez, and talked to Dr. Chavez for further evaluation of the right thigh/right groin. However, Dr. Chavez verbalized since there is no joint involvement or bone involvement, general surgery can handle the case. The case was discussed with Dr. Montoya. KAHLIL MONTOYA MD, AM/VENKATESH Conf#: [id number] DID#: [id number] MTDD
[2017-02-27] MEDS: morphine 4 MG/ML VIAL IV PRN ×2 (18:16→22:16)
[2017-02-27 20:01] VITALS: BP 107/66; RESP 18
[2017-02-27] MEDS: VANCOMYCIN 1 GM in NS 250 ML IVPB SCH (22:27)
--- NOTE | 2017-02-27 23:19 | PN ---
Date/Time of Note Date/Time of Note DATE: 02/27/17 TIME: 23:15 Assessment/Plan Lines/Catheters IV Catheter Type (from [facility]): Peripheral IV Assessment/Plan Chief Complaint/Hosp Course 1. Right thigh groin deep space infection of unknown etiology. Continue antibiotics. Continue judicious fluid management. Continue close monitoring. Recommend orthopedic consultation and evaluation 2. Leukocytosis with tachycardia secondary to above with possible sepsis. Continue antibiotics and supportive therapy as above. Improved 3. Transaminitis of unknown etiology. Consult GI. Rule out hepatitis. 4. IV drug abuse history with heroin. The patient is highly encouraged to seek help and stop abuse. 5. Left wrist motor and sensory function, possibly due to recent drug infection. Also, recommend orthopedic consultations and evaluation. Thank you Problems: Subjective 24 Hr Interval Summary Pain RLE. No f/c. No n/v. No cough. No sz. No rash. No bloating. No dysuria. Bowel function. Leukocytosis resolved. Exam/Review of Systems Vital Signs Vitals Vital Signs Date Time Temp Pulse Resp B/P Pulse Ox O2 Delivery O2 Flow Rate FiO2 02/27/17 20:01 98.2 110 18 107/66 100 02/26/17 08:19 Room Air 02/26/17 06:00 2.0 Intake and Output 02/26/17 02/26/17 02/27/17 15:00 23:00 07:00 Intake Total 200 ml 1620 ml Balance 200 ml 1620 ml Exam Free Text/Dictation GENERAL: Drowsy. No acute distress. HEENT: Pupils equal, reactive. No scleral icterus. Mucous membranes are moist. NECK: No crepitus. Trachea midline. Supple. PULMONARY: Normal respiratory effort. No wheezing. HEART: S1, S2 present. ABDOMEN: Soft, nontender. EXTREMITIES: Some induration and tenderness right medial thigh. No fluctuance. Otherwise, no edema. VASCULAR: Capillary refill is 2 seconds. NEUROLOGIC: Arousable, moves all 4 extremities grossly. LYMPHATICS: Inguinal lymphadenopathy on the right side. Results Result Diagram: 02/27/1730 02/27/1730 CAROLYN HOROWITZ MD Feb 27, 2017 23:19
[2017-02-28] MEDS: SOD CHLORIDE 0.9% 1,000 ML IV SCH ×2 (01:29→16:40)
[2017-02-28] MEDS: PIPER-TAZO 3.375 GM IV (PMX) 100 ML IVPB SCH ×3 (01:29→18:09)
[2017-02-28] MEDS: ALPRAZOLAM 0.25 MG TAB PO PRN ×3 (01:29→14:07)
[2017-02-28] MEDS: morphine 4 MG/ML VIAL IV PRN ×6 (02:06→22:41)
[2017-02-28] MEDS: HEPARIN 5,000 UNIT/0.5 ML VIAL SC SCH ×3 (05:59→21:12)
[2017-02-28 07:30] VITALS: BP 92/58; RESP 18
[2017-02-28] MEDS: FAMOTIDINE 20 MG INJ IV SCH ×2 (08:24→21:13)
[2017-02-28] MEDS: NICOTINE (14 MG/24 HR) PATCH TRANSDERM SCH ×2 (08:24→22:36)
[2017-02-28 09:32] LABS: ADD SCAN DIFF NO
[2017-02-28 09:40] LABS: BASOPHILS % 0.4 % (0.0-2.0); EOSINOPHILS # 0.1 10^3/ul (0.0-0.5); EOSINOPHILS % 0.6 % (0.0-7.0); HEMATOCRIT 36.4 % (37.0-47.0); HEMOGLOBIN 11.9 g/dl (12.0-16.0); LYMPHOCYTES # 3.2 10^3/ul (0.8-2.9); LYMPHOCYTES % 32.4 % (15.0-51.0); MEAN CORPUSCULAR HEMOGLOBIN 27.7 pg (29.0-33.0); MEAN CORPUSCULAR HGB CONC 32.7 g/dl (32.0-37.0); MEAN CORPUSCULAR VOLUME 84.8 fl (82.0-101.0); MEAN PLATELET VOLUME 9.9 fl (7.4-10.4); MONOCYTE # 0.5 10^3/ul (0.3-0.9); MONOCYTES % 4.9 % (0.0-11.0); NEUTROPHILS % 61.5 % (39.0-77.0); PLATELET COUNT 258 10^3/UL (140-415); RED BLOOD COUNT 4.29 10^6/ul (4.20-5.40); RED CELL DISTRIBUTION WIDTH 13.5 % (11.5-14.5); WHITE BLOOD COUNT 9.7 10^3/ul (4.8-10.8)
[2017-02-28 09:54] LABS: ALBUMIN 3.6 g/dl (3.3-4.9); ALBUMIN/GLOBULIN RATIO 1.5; BILIRUBIN,INDIRECT 0.1 mg/dl (0-1.1); BILIRUBIN,TOTAL 0.1 mg/dl (0.2-1.3); CREATININE 0.63 mg/dl (0.44-1.00); POTASSIUM 3.6 mmol/L (3.5-5.1)
[2017-02-28 09:56] LABS: PHOSPHORUS 4.1 mg/dl (2.5-4.9)
[2017-02-28 12:11] LABS: LYMPHOCYTE - CD4/CD8 RATIO 2.35 (0.86-5.00)
--- NOTE | 2017-02-28 13:30 | PN ---
Date/Time of Note Date/Time of Note DATE: 02/28/17 TIME: 13:29 Assessment/Plan Lines/Catheters IV Catheter Type (from [facility]): Peripheral IV Quan in Place (from [facility]): No Assessment/Plan Chief Complaint/Hosp Course 1. Right thigh groin deep space infection of unknown etiology. Continue antibiotics. Continue judicious fluid management. Continue close monitoring. Consider orthopedic consultation and evaluation 2. Leukocytosis with tachycardia secondary to above with possible sepsis. Continue antibiotics and supportive therapy as above. Improved 3. Transaminitis of unknown etiology. Consult GI. Rule out hepatitis. 4. IV drug abuse history with heroin. The patient is highly encouraged to seek help and stop abuse. 5. Left wrist motor and sensory function, possibly due to recent drug infection. Recommend orthopedic/hand consultations and evaluation. Thank you Problems: Subjective 24 Hr Interval Summary Pain RLE. No f/c. No n/v. No cough. No sz. No rash. No bloating. No dysuria. Bowel function. Leukocytosis resolved. Exam/Review of Systems Vital Signs Vitals Vital Signs Date Time Temp Pulse Resp B/P Pulse Ox O2 Delivery O2 Flow Rate FiO2 02/28/17 07:30 97.8 89 18 92/58 100 02/26/17 08:19 Room Air 02/26/17 06:00 2.0 Intake and Output 02/27/17 02/27/17 02/28/17 15:00 23:00 07:00 Intake Total 200 ml 2140 ml 1350 ml Output Total 1300 ml Balance 200 ml 840 ml 1350 ml Exam Free Text/Dictation GENERAL: Drowsy. No acute distress. HEENT: Pupils equal, reactive. No scleral icterus. Mucous membranes are moist. NECK: No crepitus. Trachea midline. Supple. PULMONARY: Normal respiratory effort. No wheezing. HEART: S1, S2 present. ABDOMEN: Soft, nontender. EXTREMITIES: Some induration and tenderness right medial thigh. No fluctuance. Otherwise, no edema. VASCULAR: Capillary refill is 2 seconds. NEUROLOGIC: Arousable, moves all 4 extremities grossly. LYMPHATICS: Inguinal lymphadenopathy on the right side. Results Result Diagram: 02/28/17 0845 02/28/17 0845 CAROLYN HOROWITZ MD Feb 28, 2017 13:30
[2017-02-28] MEDS: VANCOMYCIN 1 GM in NS 250 ML IVPB SCH ×2 (14:07→22:38)
--- NOTE | 2017-02-28 15:16 | CONS ---
Date/Time of Note Date/Time of Note DATE: 02/28/17 TIME: 15:15 Assessment/Plan Assessment/Plan Chief Complaint/Hosp Course SUBJECTIVE: No events overnight. The patient is sleeping, looks comfortable, no fevers. MICROBIOLOGY: Serology for hepatitis C came back positive, serology for HIV negative. MICROBIOLOGY: Blood cultures, urine culture negative. Wound culture negative. ANTIMICROBIALS: 1. Vancomycin. 2. Zosyn. PHYSICAL EXAMINATION: GENERAL: This is a well-developed anorexic-looking middle-aged woman who is alert, in no distress. HEENT: Head atraumatic, normocephalic. Sclerae anicteric. Buccal mucosa pink. NECK: Supple. CHEST: Rise symmetrical. Breath sounds clear. HEART: S1, S2. ABDOMEN: Soft. Bowel tones present. EXTREMITIES: With right inner thigh erythema. ASSESSMENT: 1. Systemic inflammatory response syndrome. 2. Right thigh cellulitis, possibly folliculitis. 3. History of heroin abuse. 4. Hepatitis C virus. PLAN: The patient remains stable, surgical recommendations noted. She is on appropriate antimicrobials. Continue pain management. dw staff Problems: Consultation Date/Type/Reason Admit Date/Time Feb 27, 2017 at 12:41 Initial Consult Date Type of Consultation: ID Exam/Review of Systems Vital Signs Vitals Vital Signs Date Time Temp Pulse Resp B/P Pulse Ox O2 Delivery O2 Flow Rate FiO2 02/28/17 07:30 97.8 89 18 92/58 100 02/26/17 08:19 Room Air 02/26/17 06:00 2.0 Intake and Output 02/27/17 02/27/17 02/28/17 15:00 23:00 07:00 Intake Total 200 ml 2140 ml 1350 ml Output Total 1300 ml Balance 200 ml 840 ml 1350 ml Results Result Diagram: 02/28/17 0845 02/28/17 0845 Results 24 hrs Laboratory Tests Test 02/27/17 20:21 02/28/17 08:45 Vancomycin Level Trough < 5.0 L White Blood Count 9.7 Red Blood Count 4.29 Hemoglobin 11.9 L Hematocrit 36.4 L Mean Corpuscular Volume 84.8 Mean Corpuscular Hemoglobin 27.7 L Mean Corpuscular Hemoglobin Concent 32.7 Red Cell Distribution Width 13.5 Platelet Count 258 Mean Platelet Volume 9.9 Neutrophils % 61.5 Lymphocytes % 32.4 Monocytes % 4.9 Eosinophils % 0.6 Basophils % 0.4 Nucleated Red Blood Cells % 0.0 Neutrophils # 6.0 Lymphocytes # 3.2 H Monocytes # 0.5 Eosinophils # 0.1 Basophils # 0.0 Nucleated Red Blood Cells # 0.0 Sodium Level 142 Potassium Level 3.6 Chloride Level 105 Carbon Dioxide Level 31 Anion Gap 10 Blood Urea Nitrogen 8 Creatinine 0.63 Glucose Level 91 # Calcium Level 8.0 L Phosphorus Level 4.1 Magnesium Level 2.0 Total Bilirubin 0.1 L Direct Bilirubin 0.00 Indirect Bilirubin 0.1 Aspartate Amino Transf (AST/SGOT) 600 H Alanine Aminotransferase (ALT/SGPT) 259 H Alkaline Phosphatase 54 Total Protein 6.0 L Albumin 3.6 Globulin 2.40 Albumin/Globulin Ratio 1.50 Vitamin D 1,25-Dihydroxy < 12.8 L Thyroid Stimulating Hormone (TSH) 1.030 Free Thyroxine 0.70 L Medications Medications Current Medications Sodium Chloride (NS) 1,000 ml @ 70 mls/hr [id number] IV Last administered on 01:29; Admin Dose 70 MLS/HR; Start 02/26/17 at 07:28 Ondansetron HCl (Zofran Inj) 4 mg Q6H PRN IV NAUSEA AND/OR VOMITING; Start 02/26 at 07:30 Acetaminophen (Tylenol Tab) 650 mg Q6H PRN PO PAIN LEVEL 1-3 OR FEVER; Start at 07:30 Famotidine (Pepcid Iv) 20 mg Q12 IV Last administered on 02/28/17 08:24; Admin Dose 20 MG; Start 02/26/17 at 09:00 Heparin Sodium (Porcine) (Heparin (5000 Units/0.5 ml)) 5,000 unit Q8 SC Last administered on 02/28/17 05:59; Admin Dose 5,000 UNIT; Start 02/26/17 at 14:00 Nicotine 1 patch 1 patch DAILY TRANSDERM Last administered on 02/28/17 08:24; Admin Dose 1 PATCH; Start 02/26/17 at 12:30 Piperacillin Sod/ Tazobactam Sod (Zosyn 3.375gm/ 100 ml (Pmx)) 100 ml @ 25 mls/ hr TID@02,10,18 IVPB Last administered on 02/28/17 10:09; Admin Dose 25 MLS/HR ; Start 02/26/17 at 18:00 Morphine Sulfate 3 mg 3 mg Q4H PRN IV PAIN LEVEL 4-6 Last administered on 15:03; Admin Dose 3 MG; Start 02/27/17 at 17:30 Vancomycin HCl (Vancocin) 250 ml @ 125 mls/hr Q12H IVPB Last administered on 14:07; Admin Dose 125 MLS/HR; Start 02/27/17 at 23:00 Miscellaneous Information (*Rx Drug Level Order Reminder*) VANCOMYCIN TROUGH LEVEL... ONCE ONCE XX ; Start 03/01/17 at 10:00; Stop 03/01/17 at 10:01 Alprazolam (Xanax) 0.5 mg Q6H PRN PO ANXIETY; Start 02/28/17 at 14:30 STEPHANIE FUENTES NP Feb 28, 2017 15:16
[2017-02-28] MEDS ORDERED: HYDROCODONE/APAP (5/325) TAB PO PRN (16:00)
--- NOTE | 2017-02-28 16:57 | PN ---
Date/Time of Note Date/Time of Note DATE: 02/28/17 TIME: 16:56 Assessment/Plan VTE Prophylaxis VTE Prophylaxis Intervention: SCD's Lines/Catheters IV C[facility]ter Type (from [facility]): Peripheral IV Urinary Cath still in place: No Assessment/Plan Chief Complaint/Hosp Course 1. Left thigh/groin area deep space infection of unknown etiology. Continue antibiotics. No drainable fluid as per CT scan. The patient is being followed by infectious disease and general surgery. 2. Transaminitis, most probably secondary to hepatitis C. Hepatitis C antibody positive. Hepatitis C RNA PCR pending. 3. Sepsis secondary to underlying right groin/thigh abscess. Continue antibiotics. No evidence of any septic shock. 4. Substance abuse. The patient is being followed by the pain management team. 5. Left wrist decreased range of motion. The patient will be monitored. Will obtain a CT scan of the cervical and thoracic spine to evaluate for any underlying pathology. 6. Vitamin D deficiency. Will start the patient on vitamin D supplements 7. Fluids, electrolytes and nutrition. Regular diet. 8. Deep vein thrombosis prophylaxis. Bilateral sequential compression devices. 9. Gastrointestinal prophylaxis. Histamine 2 receptor blockers. PLAN: Continue antibiotics as per infectious disease. As per general surgery recommendation, called the on-call orthopedic surgeon, Dr. Chavez on 02/27/2017, and talked to Dr. Chavez for further evaluation of the right thigh/right groin. However, Dr. Chavez verbalized since there is no joint involvement or bone involvement, general surgery can handle the case. The case was discussed with Dr. Montoya. Problems: Subjective 24 Hr Interval Summary Free Text/Dictation The patient asking for pain medications and anxiety medications around-the- clock. Exam/Review of Systems Vital Signs Vitals Vital Signs Date Time Temp Pulse Resp B/P Pulse Ox O2 Delivery O2 Flow Rate FiO2 02/28/17 07:30 97.8 89 18 92/58 100 02/26/17 08:19 Room Air 02/26/17 06:00 2.0 Intake and Output 02/27/17 02/27/17 02/28/17 15:00 23:00 07:00 Intake Total 200 ml 2140 ml 1350 ml Output Total 1300 ml Balance 200 ml 840 ml 1350 ml Exam GENERAL: This is a 31-year-old female patient, lying in bed, in no apparent distress. HEENT: Head normocephalic and atraumatic. Eyes: Anicteric sclerae. Conjunctivae clear. ENT: Nasal septum is midline. Oral mucosa is moist. NECK: Supple. No JVD noticed. RESPIRATORY: Bilaterally clear to auscultation. No adventitious breath sounds heard. No use of accessory muscles of respiration. CARDIAC: Regular rate and rhythm. S1, S2 heard. ABDOMEN: Soft, nontender and nondistended. Bowel sounds positive in all 4 quadrants. GENITOURINARY: Deferred. EXTREMITIES: Right thigh erythema with tenderness to touch close to the groin, with extension of the erythema to the left gluteal area. Left wrist joint range of motion limited. Left hand grasp weaker than right hand. NEUROLOGIC: The patient is awake, alert and oriented. Cranial nerves are grossly intact. Results Result Diagram: 02/28/17 0845 02/28/17 0845 Results 24 hrs Laboratory Tests Test 02/27/17 20:21 02/28/17 08:45 Vancomycin Level Trough < 5.0 L White Blood Count 9.7 Red Blood Count 4.29 Hemoglobin 11.9 L Hematocrit 36.4 L Mean Corpuscular Volume 84.8 Mean Corpuscular Hemoglobin 27.7 L Mean Corpuscular Hemoglobin Concent 32.7 Red Cell Distribution Width 13.5 Platelet Count 258 Mean Platelet Volume 9.9 Neutrophils % 61.5 Lymphocytes % 32.4 Monocytes % 4.9 Eosinophils % 0.6 Basophils % 0.4 Nucleated Red Blood Cells % 0.0 Neutrophils # 6.0 Lymphocytes # 3.2 H Monocytes # 0.5 Eosinophils # 0.1 Basophils # 0.0 Nucleated Red Blood Cells # 0.0 Sodium Level 142 Potassium Level 3.6 Chloride Level 105 Carbon Dioxide Level 31 Anion Gap 10 Blood Urea Nitrogen 8 Creatinine 0.63 Glucose Level 91 # Calcium Level 8.0 L Phosphorus Level 4.1 Magnesium Level 2.0 Total Bilirubin 0.1 L Direct Bilirubin 0.00 Indirect Bilirubin 0.1 Aspartate Amino Transf (AST/SGOT) 600 H Alanine Aminotransferase (ALT/SGPT) 259 H Alkaline Phosphatase 54 Total Protein 6.0 L Albumin 3.6 Globulin 2.40 Albumin/Globulin Ratio 1.50 Vitamin D 1,25-Dihydroxy < 12.8 L Thyroid Stimulating Hormone (TSH) 1.030 Free Thyroxine 0.70 L Medications Medications Current Medications Sodium Chloride (NS) 1,000 ml @ 70 mls/hr [id number] IV Last administered on 01:29; Admin Dose 70 MLS/HR; Start 02/26/17 at 07:28 Ondansetron HCl (Zofran Inj) 4 mg Q6H PRN IV NAUSEA AND/OR VOMITING; Start 02/26 at 07:30 Acetaminophen (Tylenol Tab) 650 mg Q6H PRN PO PAIN LEVEL 1-3 OR FEVER; Start at 07:30 Famotidine (Pepcid Iv) 20 mg Q12 IV Last administered on 02/28/17 08:24; Admin Dose 20 MG; Start 02/26/17 at 09:00 Heparin Sodium (Porcine) (Heparin (5000 Units/0.5 ml)) 5,000 unit Q8 SC Last administered on 02/28/17 05:59; Admin Dose 5,000 UNIT; Start 02/26/17 at 14:00 Nicotine 1 patch 1 patch DAILY TRANSDERM Last administered on 02/28/17 08:24; Admin Dose 1 PATCH; Start 02/26/17 at 12:30 Piperacillin Sod/ Tazobactam Sod (Zosyn 3.375gm/ 100 ml (Pmx)) 100 ml @ 25 mls/ hr TID@02,10,18 IVPB Last administered on 02/28/17 10:09; Admin Dose 25 MLS/HR ; Start 02/26/17 at 18:00 Morphine Sulfate 3 mg 3 mg Q4H PRN IV PAIN LEVEL 4-6 Last administered on 15:03; Admin Dose 3 MG; Start 02/27/17 at 17:30 Vancomycin HCl (Vancocin) 250 ml @ 125 mls/hr Q12H IVPB Last administered on 14:07; Admin Dose 125 MLS/HR; Start 02/27/17 at 23:00 Miscellaneous Information (*Rx Drug Level Order Reminder*) VANCOMYCIN TROUGH LEVEL... ONCE ONCE XX ; Start 03/01/17 at 10:00; Stop 03/01/17 at 10:01 Alprazolam (Xanax) 0.5 mg Q6H PRN PO ANXIETY; Start 02/28/17 at 14:30 KAHLIL FELTON NP Feb 28, 2017 16:57
[2017-02-28 20:33] VITALS: BP 106/59; RESP 20
[2017-02-28] MEDS: ALPRAZOLAM 0.5 MG TAB PO PRN (21:11)
[2017-03-01] MEDS: PIPER-TAZO 3.375 GM IV (PMX) 100 ML IVPB SCH ×3 (01:03→18:08)
[2017-03-01] MEDS: morphine 4 MG/ML VIAL IV PRN ×5 (03:37→23:29)
[2017-03-01] MEDS: HEPARIN 5,000 UNIT/0.5 ML VIAL SC SCH (05:16)
[2017-03-01 05:52] LABS: ADD SCAN DIFF NO
[2017-03-01 06:09] LABS: BASOPHIL # 0.1 10^3/ul (0.0-0.1); BASOPHILS % 0.7 % (0.0-2.0); EOSINOPHILS % 0.4 % (0.0-7.0); HEMATOCRIT 31.3 % (37.0-47.0); HEMOGLOBIN 10.2 g/dl (12.0-16.0); LYMPHOCYTES # 3.3 10^3/ul (0.8-2.9); LYMPHOCYTES % 41.3 % (15.0-51.0); MEAN CORPUSCULAR HEMOGLOBIN 27.9 pg (29.0-33.0); MEAN CORPUSCULAR HGB CONC 32.6 g/dl (32.0-37.0); MEAN CORPUSCULAR VOLUME 85.8 fl (82.0-101.0); MEAN PLATELET VOLUME 9.5 fl (7.4-10.4); MONOCYTE # 0.4 10^3/ul (0.3-0.9); MONOCYTES % 4.7 % (0.0-11.0); NEUTROPHIL # 4.2 10^3/ul (1.6-7.5); NEUTROPHILS % 52.5 % (39.0-77.0); PLATELET COUNT 242 10^3/UL (140-415); RED BLOOD COUNT 3.65 10^6/ul (4.20-5.40); RED CELL DISTRIBUTION WIDTH 13.7 % (11.5-14.5); WHITE BLOOD COUNT 8.1 10^3/ul (4.8-10.8)
[2017-03-01 06:39] LABS: MAGNESIUM 1.9 mg/dl (1.7-2.5); PHOSPHORUS 4.2 mg/dl (2.5-4.9)
[2017-03-01 06:40] LABS: ALBUMIN 3.4 g/dl (3.3-4.9); ALBUMIN/GLOBULIN RATIO 1.61; BILIRUBIN,INDIRECT 0.3 mg/dl (0-1.1); BILIRUBIN,TOTAL 0.3 mg/dl (0.2-1.3); CREATININE 0.66 mg/dl (0.44-1.00); POTASSIUM 3.4 mmol/L (3.5-5.1); TOTAL PROTEIN 5.5 g/dl (6.1-8.1)
[2017-03-01] MEDS: SOD CHLORIDE 0.9% 1,000 ML IV SCH ×3 (06:58→23:49)
[2017-03-01 07:47] VITALS: BP 94/55; RESP 18
[2017-03-01] MEDS: FAMOTIDINE 20 MG INJ IV SCH (08:23)
[2017-03-01] MEDS: CHOLECALCIFEROL 2,000 UNIT CAP PO SCH (08:23)
[2017-03-01] MEDS: ALPRAZOLAM 0.5 MG TAB PO PRN ×2 (11:37→20:20)
[2017-03-01] MEDS: VANCOMYCIN 1 GM in NS 250 ML IVPB SCH (11:45)
--- NOTE | 2017-03-01 13:42 | PN ---
Date/Time of Note Date/Time of Note DATE: 03/01/17 TIME: 13:38 Assessment/Plan VTE Prophylaxis VTE Prophylaxis Intervention: LMWH Lines/Catheters IV Catheter Type (from Nrs): Peripheral IV Urinary Cath still in place: No Assessment/Plan Chief Complaint/Hosp Course Subjective: Events noted Objective: Vss systolic 90-100 on narcotics Physical examination No pallor icterus adenopathy Regular Clear Bowel sounds positive, nontender, nondistended, no RIG No edema Assessment and plan 1. Rt thigh cellulitis vs hematoma vs myositis. Appreciate ID and surgical assistance. MRI/ rheumatology? 2. Chronic IVDA; denies injecting right thigh 3. Substance abuse: Heroin, cocaine, meth? Benzo diazepam? 4. Chronic pain? 5. Chronic anxiety depression 6. Left wrist drop. CT/Ortho pending. Nerve conduction studies? 7. Anemia 8. Tobacco abuse 9. Vitamin D deficiency 10. Acute liver injury, improved. If worse we will have to discontinue benzodiazepines. 11. Hepatitis C viremia, no evidence of cirrhosis on ultrasound. Outpatient GI , hepatitis A B vaccination. Problems: Exam/Review of Systems Vital Signs Vitals Vital Signs Date Time Temp Pulse Resp B/P Pulse Ox O2 Delivery O2 Flow Rate FiO2 03/01/17 07:47 98.0 91 18 94/55 98 02/26/17 08:19 Room Air 02/26/17 06:00 2.0 Intake and Output 02/28/17 02/28/17 03/01/17 15:00 23:00 07:00 Intake Total 100 ml 350 ml 1340 ml Balance 100 ml 350 ml 1340 ml Results Result Diagram: 03/01/17 0532 03/01/17 0532 Results 24 hrs Laboratory Tests Test 03/01/17 05:32 03/01/17 10:20 White Blood Count 8.1 Red Blood Count 3.65 L Hemoglobin 10.2 L Hematocrit 31.3 L Mean Corpuscular Volume 85.8 Mean Corpuscular Hemoglobin 27.9 L Mean Corpuscular Hemoglobin Concent 32.6 Red Cell Distribution Width 13.7 Platelet Count 242 Mean Platelet Volume 9.5 Neutrophils % 52.5 Lymphocytes % 41.3 Monocytes % 4.7 Eosinophils % 0.4 Basophils % 0.7 Nucleated Red Blood Cells % 0.0 Neutrophils # 4.2 Lymphocytes # 3.3 H Monocytes # 0.4 Eosinophils # 0.0 Basophils # 0.1 Nucleated Red Blood Cells # 0.0 Sodium Level 142 Potassium Level 3.4 L Chloride Level 107 Carbon Dioxide Level 31 Anion Gap 7 L Blood Urea Nitrogen 8 Creatinine 0.66 Glucose Level 149 # Calcium Level 8.0 L Phosphorus Level 4.2 Magnesium Level 1.9 Total Bilirubin 0.3 Direct Bilirubin 0.00 Indirect Bilirubin 0.3 Aspartate Amino Transf (AST/SGOT) 331 H Alanine Aminotransferase (ALT/SGPT) 215 H Alkaline Phosphatase 44 Total Protein 5.5 L Albumin 3.4 Globulin 2.10 Albumin/Globulin Ratio 1.61 Vancomycin Level Trough 7.4 L Medications Medications Current Medications Sodium Chloride (NS) 1,000 ml @ 70 mls/hr [id number] IV Last administered on 01:29; Admin Dose 70 MLS/HR; Start 02/26/17 at 07:28 Ondansetron HCl (Zofran Inj) 4 mg Q6H PRN IV NAUSEA AND/OR VOMITING; Start 02/26 at 07:30 Acetaminophen (Tylenol Tab) 650 mg Q6H PRN PO PAIN LEVEL 1-3 OR FEVER; Start at 07:30 Famotidine (Pepcid Iv) 20 mg Q12 IV Last administered on 03/01/17 08:23; Admin Dose 20 MG; Start 02/26/17 at 09:00 Heparin Sodium (Porcine) (Heparin (5000 Units/0.5 ml)) 5,000 unit Q8 SC Last administered on 03/01/17 05:16; Admin Dose 5,000 UNIT; Start 02/26/17 at 14:00 Nicotine 1 patch 1 patch DAILY TRANSDERM Last administered on 02/28/17 22:36; Admin Dose 1 PATCH; Start 02/26/17 at 12:30 Piperacillin Sod/ Tazobactam Sod (Zosyn 3.375gm/ 100 ml (Pmx)) 100 ml @ 25 mls/ hr TID@02,10,18 IVPB Last administered on 03/01/17 09:35; Admin Dose 25 MLS/HR ; Start 02/26/17 at 18:00 Morphine Sulfate (morphine) 3 mg Q4H PRN IV PAIN LEVEL 4-6 Last administered on 03/01/17 08:34; Admin Dose 3 MG; Start 02/27/17 at 17:30 Alprazolam (Xanax) 0.5 mg Q6H PRN PO ANXIETY Last administered on 03/01/17 11: 37; Admin Dose 0.5 MG; Start 02/28/17 at 14:30 Cholecalciferol 2000 unit 2,000 unit DAILY PO Last administered on 03/01/17 08: 23; Admin Dose 2,000 UNIT; Start 03/01/17 at 09:00 Vancomycin HCl/ Sodium Chloride (Vancocin/NS) 250 ml @ 83.333 mls/ hr Q12H IVPB ; Start 03/01/17 at 23:00 DOMINGA GUAJARDO MD Mar 01, 2017 13:42
[2017-03-01] MEDS: LACTOBACILLUS RHAMNOSUS CAP PO SCH ×2 (13:52→20:20)
[2017-03-01] MEDS: POTASSIUM CHLORIDE 20 MEQ POWDER FOR ORAL SOLN PO SCH (13:53)
--- NOTE | 2017-03-01 14:18 | CONS ---
Date/Time of Note Date/Time of Note DATE: 03/01/17 TIME: 14:17 Assessment/Plan Assessment/Plan Chief Complaint/Hosp Course SUBJECTIVE: No events overnight. The patient is awake, looks comfortable, no fevers. MICROBIOLOGY: Serology for hepatitis C came back positive, serology for HIV negative. MICROBIOLOGY: Blood cultures, urine culture negative. Wound culture negative. ANTIMICROBIALS: 1. Vancomycin. 2. Zosyn. PHYSICAL EXAMINATION: GENERAL: This is a well-developed anorexic-looking middle-aged woman who is alert, in no distress. HEENT: Head atraumatic, normocephalic. Sclerae anicteric. Buccal mucosa pink. NECK: Supple. CHEST: Rise symmetrical. Breath sounds clear. HEART: S1, S2. ABDOMEN: Soft. Bowel tones present. EXTREMITIES: With right inner thigh erythema. ASSESSMENT: 1. Systemic inflammatory response syndrome. 2. Right thigh cellulitis . 3. History of heroin abuse. 4. Hepatitis C virus. PLAN: The patient remains stable, RLE still with swelling. She is on appropriate antimicrobials. Surgery follows. Continue pain management/PT, pending ortho eval. dw staff Problems: Consultation Date/Type/Reason Admit Date/Time Feb 27, 2017 at 12:41 Type of Consultation: ID Exam/Review of Systems Vital Signs Vitals Vital Signs Date Time Temp Pulse Resp B/P Pulse Ox O2 Delivery O2 Flow Rate FiO2 03/01/17 07:47 98.0 91 18 94/55 98 02/26/17 08:19 Room Air 02/26/17 06:00 2.0 Intake and Output 02/28/17 02/28/17 03/01/17 15:00 23:00 07:00 Intake Total 100 ml 350 ml 1340 ml Balance 100 ml 350 ml 1340 ml Results Result Diagram: 03/01/17 0532 03/01/17 0532 Results 24 hrs Laboratory Tests Test 03/01/17 05:32 03/01/17 10:20 White Blood Count 8.1 Red Blood Count 3.65 L Hemoglobin 10.2 L Hematocrit 31.3 L Mean Corpuscular Volume 85.8 Mean Corpuscular Hemoglobin 27.9 L Mean Corpuscular Hemoglobin Concent 32.6 Red Cell Distribution Width 13.7 Platelet Count 242 Mean Platelet Volume 9.5 Neutrophils % 52.5 Lymphocytes % 41.3 Monocytes % 4.7 Eosinophils % 0.4 Basophils % 0.7 Nucleated Red Blood Cells % 0.0 Neutrophils # 4.2 Lymphocytes # 3.3 H Monocytes # 0.4 Eosinophils # 0.0 Basophils # 0.1 Nucleated Red Blood Cells # 0.0 Sodium Level 142 Potassium Level 3.4 L Chloride Level 107 Carbon Dioxide Level 31 Anion Gap 7 L Blood Urea Nitrogen 8 Creatinine 0.66 Glucose Level 149 # Calcium Level 8.0 L Phosphorus Level 4.2 Magnesium Level 1.9 Total Bilirubin 0.3 Direct Bilirubin 0.00 Indirect Bilirubin 0.3 Aspartate Amino Transf (AST/SGOT) 331 H Alanine Aminotransferase (ALT/SGPT) 215 H Alkaline Phosphatase 44 Total Protein 5.5 L Albumin 3.4 Globulin 2.10 Albumin/Globulin Ratio 1.61 Vancomycin Level Trough 7.4 L Medications Medications Current Medications Sodium Chloride (NS) 1,000 ml @ 70 mls/hr [id number] IV Last administered on 13:59; Admin Dose 70 MLS/HR; Start 02/26/17 at 07:28 Ondansetron HCl (Zofran Inj) 4 mg Q6H PRN IV NAUSEA AND/OR VOMITING; Start 02/26 at 07:30 Acetaminophen (Tylenol Tab) 650 mg Q6H PRN PO PAIN LEVEL 1-3 OR FEVER; Start at 07:30 Nicotine 1 patch 1 patch DAILY TRANSDERM Last administered on 02/28/17 22:36; Admin Dose 1 PATCH; Start 02/26/17 at 12:30 Piperacillin Sod/ Tazobactam Sod (Zosyn 3.375gm/ 100 ml (Pmx)) 100 ml @ 25 mls/ hr TID@02,10,18 IVPB Last administered on 03/01/17 09:35; Admin Dose 25 MLS/HR ; Start 02/26/17 at 18:00 Morphine Sulfate (morphine) 3 mg Q4H PRN IV PAIN LEVEL 4-6 Last administered on 03/01/17 13:52; Admin Dose 3 MG; Start 02/27/17 at 17:30 Alprazolam (Xanax) 0.5 mg Q6H PRN PO ANXIETY Last administered on 03/01/17 11: 37; Admin Dose 0.5 MG; Start 02/28/17 at 14:30 Cholecalciferol 2000 unit 2,000 unit DAILY PO Last administered on 03/01/17 08: 23; Admin Dose 2,000 UNIT; Start 03/01/17 at 09:00 Vancomycin HCl/ Sodium Chloride (Vancocin/NS) 250 ml @ 83.333 mls/ hr Q12H IVPB ; Start 03/01/17 at 23:00 Lactobacillus Acidophilus/ Rhamnosus (Culturelle) 1 cap BID PO Last administered on 03/01/17 13:52; Admin Dose 1 CAP; Start 03/01/17 at 14:00 Potassium Chloride (Potassium Chloride Pwd/Soln) 40 meq DAILY PO Last administered on 03/01/17 13:53; Admin Dose 40 MEQ; Start 03/01/17 at 14:00 Famotidine (Pepcid) 20 mg DAILY PO ; Start 03/02/17 at 09:00 Enoxaparin Sodium (Lovenox) 40 mg DAILY SC ; Start 03/02/17 at 09:00 STEPHANIE FUENTES NP Mar 01, 2017 14:18
[2017-03-01] MEDS ORDERED: LORAZEPAM 2 MG INJ IV ONE (15:00)
[2017-03-01] MEDS ORDERED: IOHEXOL 300MG/ML 150 ML BTL ONE (15:16)
[2017-03-01] MEDS ORDERED: SOD CHLORIDE 0.9% 100 ML ONE (15:16)
--- NOTE | 2017-03-01 16:16 | RADRPT ---
PROCEDURE: XR Pelvis. CLINICAL INDICATION: Right thigh and hip pain. CT abnormality suggesting a possible infectious my ositis or fasciitis TECHNIQUE: Single AP view of the pelvis. COMPARISON: CT right lower extremity 02/26/2017 FINDINGS: There are no fractures or dislocations. There are no arthritic, neoplastic or inflammatory changes. The osseous mineralization is normal. The sacroiliac joints and pubic symphysis are normal. Asymmetric nonspecific soft tissue swelling in volving the visualize right thigh is present. Residual contrast media within the urinary bladder is noted. There is no evidence of subcutaneous gas. RPTAT:HJJR IMPRESSION: Asymmetric soft tissues of the visualized right thigh compared to the left, otherwise unremarkable s stanislav view pelvis x-ray without osseous abnormality identified. Physician Steven Date Time Electronically viewed and signed by Physician Steven on 03/01/2017 16:16 /
--- NOTE | 2017-03-01 18:03 | RADRPT ---
Addendum created at 03/01/2017 6:11:36 PM: Impression: Multilevel degenerative changes most pronounced at C5-C6 where there is a broad-based disk bulge wit h severe right foraminal stenosis affecting the exiting right C6 nerve root. Addendum by: Axel Link PROCEDURE: CT Cervical Spine with contrast. CLINICAL INDICATION: Epidural abscess. TECHNIQUE: CT of the cervical spine was performed following the intravenous administration of 100 cc of Omnipaque-300 with axial images. Coronal and sagittal images were also performed. The administer ed radiation dose was CTDI vol = 5.48, 10.02 mGy, DLP = 152.53, 586.31 mGy-cm. One or more of the f ollowing dose reduction techniques were used: Automated exposure control, Adjustment of the mA and/o r kV according to patient size, or Use of iterative reconstruction technique. COMPARISON: There are no similar studies submitted for comparison. FINDINGS: Evaluation for epidural abscess is limited on CT. There is straightening of the normal cervical lordosis. The vertebral body heights are maintained. There is normal alignment. There is no destructive osseous lesion. No acute fracture is identified. C2-C3 : There is no disc herniation, spinal canal, or foraminal stenosis. C3-C4 : There is mild disk space narrowing. There is a 1 mm broad-based disk bulge without spinal c anal or bilateral foraminal stenosis. C4-C5 : There is mild to moderate disk space narrowing. There is 1 mm broad-based disk bulge withou t spinal canal stenosis. There is bilateral uncovertebral hypertrophy causing mild to moderate righ t without left foraminal stenosis. C5-C6 : There is mild to moderate disk space narrowing. There is 1 mm broad-based disk bulge with b ilateral uncovertebral hypertrophy causing severe right without left foraminal stenosis. This affec ts the exiting right C6 nerve root. C6-C7 : The there is mild to moderate disk space narrowing. There is no disk herniation, spinal can al, or bilateral foraminal stenosis. C7-T1 : There is no disc herniation, spinal canal, or foraminal stenosis. There is a right upper lobe consolidation (image 86 series 5) which is partially imaged. There are m ildly prominent mediastinal lymph nodes. IMPRESSION: Evaluation for epidural abscess is limited on CT. 1. No definite evidence of epidural abscess. 2. No acute fracture or subluxation. 3. Straightening of the normal cervical lordosis. 4. Right upper lobe consolidation which is partially imaged. This may represent pneumonia versus oth er etiologies. There are mildly prominent mediastinal lymph nodes. Dedicated CT of the chest with co ntrast is recommended for further evaluation. Further findings as detailed above. RPTAT: PP .Axel Link MD, MD Date Time Electronically viewed and signed by .Axel Link MD, on 03/01/2017 18:11 .F/
--- NOTE | 2017-03-01 18:07 | RADRPT ---
PROCEDURE: CT Thoracic Spine. CLINICAL INDICATION: Epidural abscess. TECHNIQUE: CT of the thoracic spine was performed following the intravenous administration of 100 c c of Omnipaque-300 with multiplanar reformatted images generated from the axial acquired data. The a dministered radiation dose was CTDI vol = 5.40, 10.02 mGy, DLP = 152.53, 586.31 mGy-cm. One or more of the following dose reduction techniques were used: Automated exposure control, Adjustment of the mA and/or kV according to patient size, or Use of iterative reconstruction technique. COMPARISON: There are no similar studies submitted for comparison. FINDINGS: Evaluation for epidural abscess is limited on CT. There is preservation of the normal thoracic kyphosis. The vertebral body heights are maintained. There is normal alignment. There is no destructive osseous lesion.There is no acute fracture. The discs are normal in height. There are multilevel minimal disk bulges without spinal canal or bilateral foraminal stenosis. There is a right upper lobe consolidation which is partially imaged. There is also a left lower lobe focal bronchiectasis. There are mildly prominent mediastinal lymph nodes. IMPRESSION: Evaluation for epidural abscess is limited on CT. 1. No definite evidence of epidural abscess. 2. No acute fracture. 3. Right upper lobe consolidation which is partially imaged. This may represent pneumonia versus oth er etiologies. There is also left lower lobe focal bronchiectasis. There are mildly prominent medias tinal lymph nodes. CT of the chest may be performed as clinically warranted. 4. Minimal degenerative changes within the thoracic spine. Further findings as detailed above. RPTAT: PP .Axel Link MD, MD Date Time Electronically viewed and signed by .Axel Link MD, on 03/01/2017 18:06 .F/
--- NOTE | 2017-03-01 18:11 | RADRPT ---
PROCEDURE: CT Lumbar Spine with contrast. CLINICAL INDICATION: Epidural abscess. TECHNIQUE: CT of the lumbar spine was performed following intravenous administration of 100 cc of O mnipaque-300 with multiplanar reformatted images generated from the axial acquired data. The adminis tered radiation dose was CTDI vol = 5.40, 10.02 mGy, DLP = 152.53, 586.31 mGy-cm. One or more of th e following dose reduction techniques were used: Automated exposure control, Adjustment of the mA an d/or kV according to patient size, or Use of iterative reconstruction technique. COMPARISON: There are no similar studies submitted for comparison. FINDINGS: Evaluation for epidural abscess is limited on CT. There is a transitional vertebra which will be labeled L5 with rudimentary disc at L5-S1. Please ref er to imaging prior to any surgical intervention. There is normal lumbar lordosis. the vertebral body heights are maintained. There is normal alignment. There is no destructive osseous lesion.There is no acute fracture. T12-L1: There is no disc herniation, spinal canal, or foraminal stenosis. L1-L2: There is no disc herniation, spinal canal, or foraminal stenosis. L2-L3: There is no disc herniation, spinal canal, or foraminal stenosis. L3-L4: There is a 1 mm broad-based disk bulge and mild by facet arthropathy without spinal canal or bilateral foraminal stenosis. L4-L5: There is mild disk space narrowing. There is a 3 mm circumferential disk osteophyte complex with left paracentral component mildly effacing the left greater than right lateral recess with mild bilateral facet arthropathy without spinal canal stenosis. There is moderate to severe left withou t right foraminal stenosis impinging the exiting left L4 nerve root. L5-S1: There is a rudimentary disk without disk herniation, spinal canal, or bilateral foraminal rubia nosis. IMPRESSION: Evaluation for epidural abscess is limited on CT. There is a transitional vertebra which will be labeled L5 with rudimentary disc at L5-S1. Please ref er to imaging prior to any surgical intervention. 1. No evidence of epidural abscess. 2. Multilevel degenerative changes most pronounced at L4-L5 where there is a circumferential disk osteophyte complex with left paracentral component mildly effacing the left greater than right later al recess with moderate to severe left foraminal stenosis impinging the exiting left L4 nerve root. 3. No acute fracture. Further findings as detailed above. RPTAT: PP .Axel Link MD, Date Time Electronically viewed and signed by .Axel Link MD, MD on 03/01/2017 18:10 .F/
[2017-03-01 20:28] VITALS: BP 90/50; RESP 18
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
[2017-03-01] MEDS ORDERED: VANCOMYCIN 1.25 GM in SOD CHLORIDE 0.9% 250 ML IVPB SCH (23:00)
[2017-03-02] MEDS: PIPER-TAZO 3.375 GM IV (PMX) 100 ML IVPB SCH ×2 (03:15→10:53)
[2017-03-02] MEDS: morphine 4 MG/ML VIAL IV PRN ×2 (03:44→08:08)
[2017-03-02] MEDS: ALPRAZOLAM 0.5 MG TAB PO PRN ×2 (04:23→10:52)
--- NOTE | 2017-03-02 04:55 | PN ---
Date/Time of Note Date/Time of Note DATE: 03/01/17 TIME: 11:53 Assessment/Plan Lines/Catheters IV Catheter Type (from [facility]): Peripheral IV Quan in Place (from [facility]): No Assessment/Plan Chief Complaint/Hosp Course 1. Right thigh groin deep space infection of unknown etiology. Continue antibiotics. Continue judicious fluid management. Continue close monitoring. Orthopedic consultation and evaluation 2. Leukocytosis with tachycardia secondary to above with possible sepsis. Continue antibiotics and supportive therapy as above. Improved 3. Transaminitis of unknown etiology. Consult GI. Rule out hepatitis. 4. IV drug abuse history with heroin. The patient is highly encouraged to seek help and stop abuse. 5. Left wrist motor and sensory function, possibly due to recent drug infection. Orthopedic/hand consultation and evaluation. CTs pending Thank you Late entry 03/01 Problems: Subjective 24 Hr Interval Summary Pain RLE. No f/c. No n/v. No cough. No sz. No rash. No bloating. Wrist drop. Leukocytosis resolved. CT pending Exam/Review of Systems Vital Signs Vitals Vital Signs Date Time Temp Pulse Resp B/P Pulse Ox O2 Delivery O2 Flow Rate FiO2 03/01/17 20:28 98.1 118 18 90/50 100 02/26/17 08:19 Room Air Intake and Output 03/01/17 03/01/17 03/02/17 15:00 23:00 07:00 Intake Total 710 ml 1520 ml 250 ml Balance 710 ml 1520 ml 250 ml Exam Free Text/Dictation GENERAL: Drowsy. No acute distress. HEENT: Pupils equal, reactive. No scleral icterus. Mucous membranes are moist. NECK: No crepitus. Trachea midline. Supple. PULMONARY: Normal respiratory effort. No wheezing. HEART: S1, S2 present. ABDOMEN: Soft, nontender. EXTREMITIES: Some induration and tenderness right medial thigh. No fluctuance. Otherwise, no edema. VASCULAR: Capillary refill is 2 seconds. NEUROLOGIC: Arousable, moves all 4 extremities grossly. LYMPHATICS: Inguinal lymphadenopathy on the right side. Results Result Diagram: 03/01/17 0532 03/01/17 0532 CAROLYN HOROWITZ MD Mar 02, 2017 04:55
[2017-03-02 06:54] LABS: ALBUMIN 3.5 g/dl (3.3-4.9); ALBUMIN/GLOBULIN RATIO 1.66; BILIRUBIN,INDIRECT 0.2 mg/dl (0-1.1); BILIRUBIN,TOTAL 0.2 mg/dl (0.2-1.3); CALCIUM 8.1 mg/dl (8.4-10.2); CREATININE 0.68 mg/dl (0.44-1.00); MAGNESIUM 1.9 mg/dl (1.7-2.5); PHOSPHORUS 4.1 mg/dl (2.5-4.9); POTASSIUM 3.7 mmol/L (3.5-5.1); TOTAL PROTEIN 5.6 g/dl (6.1-8.1)
[2017-03-02] MEDS: CHOLECALCIFEROL 2,000 UNIT CAP PO SCH (08:07)
[2017-03-02] MEDS: LACTOBACILLUS RHAMNOSUS CAP PO SCH (08:07)
[2017-03-02] MEDS: POTASSIUM CHLORIDE 20 MEQ POWDER FOR ORAL SOLN PO SCH (08:07)
[2017-03-02] MEDS: NICOTINE (14 MG/24 HR) PATCH TRANSDERM SCH (08:08)
[2017-03-02] MEDS ORDERED: ENOXAPARIN 40 MG/0.4 ML SYG SC SCH (09:00)
[2017-03-02] MEDS ORDERED: FAMOTIDINE 20 MG TAB PO SCH (09:00)
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
[2017-03-02] MEDS ORDERED: CEPH-443 PO (14:25)
[2017-03-02] MEDS ORDERED: SULF1TAB31 PO (14:26)
== END 2017-03-02 11:24 | disposition left against medical advice (07) | DRG 605 ==
LOC: E/R 20:25 → PP2 02-26 04:09 → OBSVTOIN 02-27 12:41
PROVIDERS: ADMIT Family Medicine; ATTEND Family Medicine
PROC: 0J9L3ZZ Drainage of Right Upper Leg Subcutaneous Tissue and Fascia, Percutaneous Approach (ICD-10-PCS; principal; 2017-02-26)
DX: S70.11XA Contusion of right thigh, initial encounter (principal); S36.119A Unspecified injury of liver, initial encounter; F11.10 Opioid abuse, uncomplicated; Z59.0 Homelessness; R74.0 Nonspecific elevation of levels of transaminase and lactic acid dehydrogenase [LDH]; B19.20 Unspecified viral hepatitis C without hepatic coma; E55.9 Vitamin D deficiency, unspecified; F41.8 Other specified anxiety disorders; D64.9 Anemia, unspecified; Z72.0 Tobacco use; F14.10 Cocaine abuse, uncomplicated; G56.32 Lesion of radial nerve, left upper limb; X58.XXXA Exposure to other specified factors, initial encounter; D72.829 Elevated white blood cell count, unspecified; R00.0 Tachycardia, unspecified
CPT/HCPCS: 36415; 71010; 72125; 72128; 72131; 72170; 73700; 76536; 76705; 76942; 80053; 80202; 80306; 80307; 81001; 82306; 82652; 83036; 83605; 83735; 84100; 84439; 84443; 84703; 85025; 85610; 85730; 86360; 86703; 86704; 86706; 86709; 86803; 87040; 87070; 87086; 87340; 93971; 93976; 94770; 96374; 96375; G0378; J1644; J1650; J2270; J2405; J2543; J3370; J7030; J7050; Q9967

== ENCOUNTER 2017-03-02 11:48 | Emergency (ER) | payer MEDICARE, OTHER ==
[~2017-03-02] VITALS: Ht 160 cm; Wt 45.0 kg
[~2017-03-02 11:48] MED LIST: ALPR0.25 PO; CEPH-442 PO; IBUP-1542 PO
[2017-03-02 12:36] VITALS: Ht 160 cm; Wt 45.0 kg
[2017-03-02] MEDS ORDERED: CEPH-443 PO (14:25)
[2017-03-02] MEDS ORDERED: SULF1TAB31 PO (14:26)
--- NOTE | 2017-03-02 14:27 | ERD ---
ER Documentation Chief Complaint Date/Time DATE: 03/02/17 TIME: 14:27 Chief Complaint nerve damage left hand, right left edema, heart palpitations. HPI Patient is a 31-year-old female with no diabetes who presents with "nerve damage " and right leg swelling. She says that her left hand is paralyzed and that she has nerve damage. She also says that she has right leg swelling around her recent incision and drainage. She left AGAINST MEDICAL ADVICE from the hospital today because she "had a panic attack". However upon review of old medical records the primary team and consultants were going to discharge her today anyway. However she says that she has "a lot of things going on" including a court date, interviews with detectives, and dealing with no place to live. She says "I need to be admitted for physical therapy". ROS All systems reviewed and are negative except as per history of present illness. Medications Home Meds Active Scripts Sulfamethoxazole/Trimethoprim* (Bactrim Ds* Tablet) 1 Each Tablet, 1 TAB PO BID , #14 TAB Prov:CATIE MILLAN MD 03/02/17 Cephalexin* (Keflex*) 500 Mg Capsule, 500 MG PO QID for 7 Days, CAP Prov:CATIE MILLAN MD 03/02/17 Reported Medications Ibuprofen* (Ibuprofen*) 600 Mg Tablet, 600 MG PO Q8 for PAIN LEVEL 1-5, TAB 02/25/17 Alprazolam* (Xanax*) Unknown Strength Tablet, 0 PO Q8H Y for ANXIETY, TAB 02/25/17 Cephalexin* (Keflex*) Unknown Strength Capsule, 0 PO Q6, #28 CAP 02/25/17 Allergies Allergies: Coded Allergies: No Known Allergy (Unverified , 02/25/17) PMhx/Soc History of Surgery: No Hx Substance Use: Yes (heroin per MR) Hx Tobacco Use: Yes (daily per MR) FmHx Family History: No diabetes Physical Exam Vitals Vital Signs Date Time Temp Pulse Resp B/P Pulse Ox O2 Delivery O2 Flow Rate FiO2 03/02/17 12:36 98.4 136 20 126/78 99 Physical Exam Const: Anxious Head: Atraumatic Eyes: Normal Conjunctiva ENT: Normal External Ears, Nose and Mouth. Neck: Full range of motion..~ No meningismus. Resp: Clear to auscultation bilaterally Cardio: Tachycardic rate without murmur Abd: Soft, non tender, non distended. Normal bowel sounds Skin: Patient had a recent incision and drainage of the right thigh Back: No midline or flank tenderness Ext: No cyanosis, or edema Neur: Awake and alert, the patient has left hand with what appears to be a claw deformity Psych: Anxious, no suicidal or homicidal ideation Procedures/MDM EKG read by me: Rate/Rhythm: Tachycardic rate 128 Intervals: Normal Impression: Tachycardia without ischemia Smoking Cessation Therapy: Pt. was lectured for greater than 3 minutes on the health risks of continued smoking and the benefits of cessation. Patient is a 31-year-old female who presents for what appears to be a panic attack. The patient left AGAINST MEDICAL ADVICE just a few hours ago after being admitted. The patient says that her left hand is paralyzed as well. I reviewed the notes from the inpatient team and they have identified all these issues as well. However they were planning to discharge the patient today anyway along with the consultants that had seen the patient. I will give the patient a prescription for Keflex and Bactrim for her right thigh abscess. I also offered her a list of homeless shelters which she said "I have already". Her time of discharge was 2:30 PM and it is daylight. At this point I doubt sepsis. I doubt stroke or other life-threatening neurologic issue. She will need to follow-up with the local clinics that she does not currently have a primary doctor and I told her she should follow-up within the next 24-48 hours. She will likely require further outpatient workup but I do not believe she requires readmission to the panel team at this time and based on the discharge note from today the patient did not require inpatient level of care today anyway. Departure Diagnosis: Primary Impression: Panic attack Additional Impressions: Abscess Tachycardia Condition: Fair Patient Instructions: Sinus Tachycardia, Panic Attack Referrals: COMMUNITY CLINICS YOU HAVE RECEIVED A MEDICAL SCREENING EXAM AND THE RESULTS INDICATE THAT YOU DO NOT HAVE A CONDITION THAT REQUIRES URGENT TREATMENT IN THE EMERGENCY DEPARTMENT. FURTHER EVALUATION AND TREATMENT OF YOUR CONDITION CAN WAIT UNTIL YOU ARE SEEN IN YOUR DOCTORS OFFICE WITHIN THE NEXT 1-2 DAYS. IT IS YOUR RESPONSIBILITY TO MAKE AN APPOINTMENT FOR FOLOW-UP CARE. IF YOU HAVE A PRIMARY DOCTOR --you should call your primary doctor and schedule an appointment IF YOU DO NOT HAVE A PRIMARY DOCTOR YOU CAN CALL OUR PHYSICIAN REFERRAL HOTLINE AT IF YOU CAN NOT AFFORD TO SEE A PHYSICIAN YOU CAN CHOSE FROM THE FOLLOWING [facility] CLINICS [facility] [address] [facility] [address] [facility] [facility] [address] [facility] [address] [facility]. [facility] [address]. [facility]. [address] Additional Instructions: Call your primary care doctor TOMORROW for an appointment during the next 1-2 days.See the doctor sooner or return here if your condition worsens before your appointment time. CATIE MILLAN MD Mar 02, 2017 14:27
== END 2017-03-02 14:38 | disposition home or self-care (01) ==
LOC: E/R 11:48
DX: F41.0 Panic disorder [episodic paroxysmal anxiety] (principal); L02.415 Cutaneous abscess of right lower limb; R00.0 Tachycardia, unspecified; F17.210 Nicotine dependence, cigarettes, uncomplicated
CPT/HCPCS: 93005